=== PATIENT | male | born 1960 | race Caucasian/White ===

== ENCOUNTER 2019-08-02 10:16 | Outpatient (CLI) | payer BC ==
--- NOTE | 2019-08-02 15:33 | CONSULTATION NOTE ---
Palliative Care Consultation - Referral Referring Provider: Dr. Zoltan Mariscal Time of Visit: 01-26 Referral setting: [facility] [place] Referral Reason: Rectal cancer with liver mets/Goals of Care - Information Sources Records reviewed: Previous records reviewed History/Review of Systems obtained from: Patient Exam limitations: No limitations - History of Present Illness Brief History of Present Illness: This is a 58-year-old gentleman with stage IV rectal adenocarcinoma, with mets to the liver and pending biopsy to the lung. Patient is to initiate FOLFIRINOX, with adding Avastin after 2 cycles if appropriate. Patient has seen multiple specialists including surgeon, oncologist, radiation oncology and oncology PA for chemotherapy teaching. He is feeling somewhat overwhelmed. He originally thought he had 2 weeks, he has heard 2 years, and also possibly a longer extended period of life expectancy. He is not clear given what is going on, will he may have a follow-up surgery, and/or follow-up radiation. We did discuss at length just the complexity sometimes of layering the treatments, and as they are evaluating response to his chemotherapy, the timing and options of pending treatments as far as surgery and radiation look further come into focus. He does understand those treatment is not curative in nature, but not as dire as he originally thought. Patient only other symptom, has been the bleeding in his stool, sometimes mixed with fresh clots, and does report worsening or versus decreasing caliber in his stool. He does not present with any acute pain, tenderness, or symptoms of bowel obstruction. The hope at this point in time is to avoid a colostomy if possible. Palliative care meeting with patient to define goals of care, further explore advance care planning, and establish rapport for ongoing symptom management and support Medical/Surgical History - Past Medical History Cardiovascular: reports: Hypertension (new dx for patient) Respiratory: reports: Other (lung nodule with bx pending 07/21) HEENT: reports: Chronic vision loss MRSA Hx?: No - Past Surgical History General: reports: Colonoscopy - Substance History Use: Uses substance without health or social issues: NONE Social History - Living Situation Living arrangement: At home Living Situation: Alone Support System: Patient is single, 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 He has 2 little dogs, to provide him much support and na. His mother is 83, reports she is quite strong, and is his main support. She is in contact with him almost daily, he has a brother [place] He has a sister in [place] and his sister in [place], does not have much community. He prefers things fairly quiet. He lives on [place], he is getting ready to sell his house to downsize and make things more simple. Family History - Family History Family History: Mother: Alive and Well, Father: Alive and Well, Sister: Alive and Well, Brother: Alive and Well Family History Comment/Other: patient reports there is cancer in siblings of mother, would like genetic dena warren Encouraged to get more information as will need for PEDIGREE and appointment. Medications/Allergies - Medications Home Medications: Ambulatory Orders Medication Instructions Recorded Confirmed Ascorbic Acid [Vitamin C] 1,000 mg PO [id number] 07/19/19 07/19/19 Multivit-Min/FA/Lycopen/Lutein 1 tab PO DAILY 07/19/19 08/02/19 [Men 50 Plus Multivitamin Tab] Lidocaine/Prilocain 2.5% Cream 30 gm TOP DAILY PRN 07/26/19 08/02/19 [Emla 2.5% Cream] OLANZapine [Olanzapine] 5 mg PO QPM PRN 07/26/19 08/02/19 Prochlorperazine Maleate 10 mg PO Q6HR PRN 07/26/19 08/02/19 [Compazine] Cholecalciferol [Vitamin D3] 5,000 unit PO DAILY 08/02/19 08/02/19 amLODIPine [Norvasc] 5 mg PO DAILY 08/02/19 08/02/19 - Allergies Allergies/Adverse Reactions: Allergies Allergy/AdvReac Type Severity Reaction Status Date / Time No Known Drug Allergies Allergy Verified 07/19/19 16:08 Review of Systems - Constitutional Constitutional: reports: Fatigue, Weight loss (reports purposeful 231-to 215 with portion control over last few months). denies: Fever, Chills - Eyes Eyes: reports: Vision loss, Corrective lenses - Cardiovascular Cardiovascular: denies: Decr. exercise tolerance - Respiratory Respiratory: denies: Cough, SOB at rest - Gastrointestinal Gastrointestinal: reports: Change in bowel habits, Rectal bleeding, Good appetite. denies: Abdominal pain, Nausea - Musculoskeletal Musculoskeletal: denies: Muscle weakness - Integumentary Integumentary: reports: Dryness - Neurological Neurological: denies: General weakness - Psychiatric Psychiatric: denies: Depression, Anxiety - Endocrine Endocrine: denies: Diabetes type 2, Hypothyroidism - Hematologic/Lymphatic Hematologic/Lymphatic: denies: Anemia, Recurrent infections - All Other Systems All Other Systems: reports: Reviewed and negative Physical Exam - Physical Exam General Appearance: positive: No acute distress, Anxious Eyes Bilateral: positive: Normal inspection ENT: positive: No signs of dehydration Neck: positive: Trachea midline Respiratory: positive: No respiratory distress Abdomen: positive: Soft Skin: positive: Dryness Extremities: positive: No pedal edema Neurologic/Psychiatric: positive: Oriented x3, Mood/affect nml Palliative Care - POLST Patient has POLST: No POLST Status: Full Code Pain: No pain Drowsiness/Sedation: None Nausea: None Anorexia: None Dyspnea: None Depression: None Anxiety: None Feelings of wellbeing/Perceived Quality of Life: Good, Acceptable Sleep: Sleeps well Constipation: No - Palliative Care Discussion: Discussion regarding patient's journey so far, does understand the seriousness of his illness, is hoping for the best. He does have a packet of advanced care planning documents, seems overwhelmed with it all. We did discuss in the context of priorities, most important to pick a D POA, he would pick his mother, given form to fill out for first picked mother, second pick father, and then brother. Reviewed needed to just have 2 witnesses or the notary does not need both. Did discuss advance care planning, this is more in alignment to goals, and if he were to have serious decline or D POA needed to make decisions. Given this is early in his nature, he would of course want to be as independent for as long as possible, and is just now exploring all the implications regarding his treatments. We agreed we would revisit this as things settle down, to define more what is most important. His long-term goal is of course of hope for the best, wanting both quantity and quality, patient is in fairly good shape and the goal is to do maximum treatment. We did discuss in the context of this he always has the decision- making capacity to be able to weigh benefits and burdens of treatment decisions as they come along. Did encourage to identify a person who will be checking on him regularly particularly as he lives alone and will be getting fairly toxic treatment. Results - Lab Results Lab results reviewed: Yes Impression and Recommendations - Palliative Care Impression: This is a 58-year-old gentleman who presents with stage IV rectal cancer, with treatment for palliative intent. Patient does not have any significant underlying history other than hypertension, is hoping for the best, and long- term quantity as well as quality. Palliative care to provide support for pain and symptom management and anticipatory guidance as treatment plan develops, and in the setting of developing report today. Recommendations/Counseling Done: 1. Metastatic stage IV rectal cancer. Patient receiving first treatment today, brought antiemetics and questions, written out instructions today. Reviewed both treatment of side effects, as well as concern about continue to keep stools soft and regularly moving. Counseling provided regarding signs and symptoms of bowel obstruction, use of MiraLAX for daily soft BM when not having diarrhea from treatment. Patient with questions regarding diet, counseling provided regarding healthy diet options, as well as improving intake of fresh fruits and vegetables. Patient currently would most likely benefit from dietary consult, but would wait for a couple of visits given his current state of mind. Patient requesting if radiation to be part of plan, would prefer to have [place] [facility] [place] secondary to support/driving. 2. Hypertension. Patient was started on low-dose amlodipine 5 mg, encouraged to take blood pressure intermittently. Reviewed signs and symptoms of dizziness, check blood pressure and hold BP med if less than 100/50. 3. Advanced care planning. Counseling provided regarding completion of D POA, will be identifying his mother as his primary, also discussed setting up plan for check-in during time after chemo for any complications. Patient is planning to downsize, and create more simplified life given his current understanding regarding his disease process. Palliative care will continue to work with advanced care planning at subsequent visits, goals of care at this point in time are to focus on quality but also quantity of life and moving forward. Time Spent: 60 minutes with greater than 50% of this done in counseling regarding new diagnosis, goals of care, clarifying symptom management for side effects as well is managing bowels, and anticipatory guidance.
== END 2019-08-02 10:17 | disposition home or self-care (01) ==
LOC: PC 10:16
PROVIDERS: ATTEND Nurse Practitioner Adult Health
DX: Z51.5 Encounter for palliative care (principal); C20 Malignant neoplasm of rectum; C78.7 Secondary malignant neoplasm of liver and intrahepatic bile duct; R91.1 Solitary pulmonary nodule; I10 Essential (primary) hypertension; Z80.9 Family history of malignant neoplasm, unspecified; Z79.899 Other long term (current) drug therapy
CPT/HCPCS: 99205

== ENCOUNTER 2019-09-13 08:16 | Outpatient (CLI) | payer BC ==
--- NOTE | 2019-09-13 14:01 | CONSULTATION NOTE ---
Palliative Care Follow Up - Referral Referring Provider: Dr. Zoltan Mariscal Time of Visit: [id number] Referral setting: [facility] – [place] Referral Reason: Anxiety/Met Colon CA/Goals of care - Information Sources Records reviewed: Previous records reviewed History/Review of Systems obtained from: Patient Exam limitations: No limitations - History of Present Illness Update Brief HPI Update: This is a sabas 59-year-old gentleman who has clinical stage IV rectal cancer with liver and lung mets. He is currently receiving FOLFIRINOX, every two weeks. He is here to receive treatment for of his neoadjuvant regimen. He has been tolerating very well, with some side effects from the oxaliplatin with numbness tingling and cold sensitivities. He reports this usually resolves within a week. He has had some mild nausea, and fatigue but otherwise has felt pretty well. He is feeling quite hopeful, as he is to be meeting with the col orectal surgeon, follow-up on his lung nodule, as well as the radiation oncologist. He was feeling things are quite dire, but is feeling more positive and hopeful given his meeting just recently with oncologist. Patient presents with low symptom burden, he is managing his constipation alternating with diarrhea with MiraLAX and Imodium appropriately. He is continue to be active as far as walking daily, focusing on diet, and hydration. He is somewhat perplexed as he does not "feel I have cancer", but is somewhat anxious about planning for the future and making decisions in the context of his prognosis. He reports he is getting adequate support from his mother, he does see her daily, as well as he likes his quiet and spending time with his 2 little dogs. He has been able to remain weight neutral, has had no further rectal bleeding, or obstructive symptoms. Social History - Living Situation Living arrangement: At home Living Situation: Alone Support System: Patient feels well supported by his mother, who is in good health. He has his sister visiting from [place] and they have enjoyed going on hikes, as well as time together. He is currently retired from the [employer], have encouraged him to contact Social Security, for Social Security disability as he did not know this was available. Medications/Allergies - Medications Home Medications: Ambulatory Orders Medication Instructions Recorded Confirmed Ascorbic Acid [Vitamin C] 1,000 mg PO DAILY 07/19/19 09/14/19 Multivit-Min/FA/Lycopen/Lutein 1 tab PO DAILY 07/19/19 09/14/19 [Men 50 Plus Multivitamin Tab] Lidocaine/Prilocain 2.5% Cream 30 gm TOP DAILY PRN 07/26/19 09/14/19 [Emla 2.5% Cream] OLANZapine [Olanzapine] 5 mg PO QPM PRN 07/26/19 09/14/19 Prochlorperazine Maleate 10 mg PO Q6HR PRN 07/26/19 09/14/19 [Compazine] Cholecalciferol [Vitamin D3] 5,000 unit PO DAILY 08/02/19 09/14/19 amLODIPine [Norvasc] 5 mg PO DAILY 08/02/19 09/14/19 Iron Supplement 65 mg PO .QOD 09/14/19 Loperamide [Imodium] 2 mg PO Q4HR PRN MDD 8 tabs 09/14/19 09/14/19 polyethylene glycoL 3350 [Miralax] 17 mg PO DAILY PRN 09/14/19 09/14/19 - Allergies Allergies/Adverse Reactions: Allergies Allergy/AdvReac Type Severity Reaction Status Date / Time No Known Drug Allergies Allergy Verified 08/30/19 08:43 Review of Systems - Constitutional Constitutional: reports: Fatigue, Weight stable (201). denies: Fever, Chills - Eyes Eyes: reports: Vision loss, Corrective lenses - Ears, Nose & Throat Ears, Nose & Throat: denies: Mouth lesions - Cardiovascular Cardiovascular: reports: Decr. exercise tolerance. denies: Chest pain, Edema, Lightheadedness - Respiratory Respiratory: denies: SOB at rest - Gastrointestinal Gastrointestinal: reports: Constipation, Diarrhea (alternating; uses immodium/miralaz) - Musculoskeletal Musculoskeletal: denies: Muscle weakness - Integumentary Integumentary: denies: Pruritis, Dryness - Neurological Neurological: denies: General weakness - Psychiatric Psychiatric: reports: Anxiety. denies: Depression - Endocrine Endocrine: reports: Intolerance to cold (for week with chemo) - Hematologic/Lymphatic Hematologic/Lymphatic: reports: Anemia. denies: Recurrent infections - All Other Systems All Other Systems: reports: Reviewed and negative Physical Exam - Vital Signs Temperature: 36.6 C Pulse Rate: 81 Respiratory Rate: 16 Blood Pressure: 145/87 - Physical Exam General Appearance: positive: No acute distress, Alert Eyes Bilateral: positive: Normal inspection ENT: negative: Mouth lesions Neck: positive: Trachea midline Cardiovascular: positive: Regular rate & rhythm Respiratory: positive: No respiratory distress, Breath sounds nml Abdomen: positive: Non-tender, Soft. negative: Guarding, Distended Skin: positive: Pallor, Dryness Extremities: positive: No pedal edema Neurologic/Psychiatric: positive: Oriented x3, Mood/affect nml Palliative Care - POLST Patient has POLST: No Pain: No pain Tiredness/Fatigue: None Drowsiness/Sedation: None Nausea: None Anorexia: Mild (1-3) Dyspnea: None Depression: None Anxiety: None, Comment (some anxiety noted in conversation) Feelings of wellbeing/Perceived Quality of Life: Excellent, Acceptable, No change Sleep: Sleeps well Constipation: Yes, Managed, Intermittent constipation Performance Status: Patient only noting the small impact on activity, with some residual fatigue first week. Otherwise walking on a regular basis, managing his ADLs, though he does have large property to manage, discussion regarding planning for the future, with more intensive therapies. - Palliative Care Discussion: Session regarding patient's journey with this, with original diagnosis feeling overwhelmed and things were dire, feeling somewhat more hopeful. No recognizes the seriousness of his illness, but coming to terms may have more quantity of life and originally had discussed. Counseling provided regarding the multiple treatments and journey ahead, that care for metastatic rectal cancer has improved both for quality and quantity of life. Patient did complete his D POA for his mother as primary Carol Peace as primary [phone]. Counseling provided though regarding in the context of talking about what is most important to him, if he were unable to speak for himself. We are hoping for the best in a good outcome, but if he were to have an unexpected hospitalization, or complication from his cancer it is important that she understand what his choices might be. He values his independence, would not want to be dependent on anyone, or receive care that would extend suffering. We discussed having this conversation, and also documenting for the future. Patient is currently retired, is toying with and weighing benefits and burdens of moving. We did discuss in the context of course this is still a serious illness, looking at ways that with decrease his stress as well as his financial distress. He has not applied for Social Security disability, encouraged him to contact and get an appointment as soon as possible. Given his "terminal" diagnosis would qualify. Results - Lab Results Lab results reviewed: Yes Impression and Recommendations - Palliative Care Impression: This is a 59-year-old gentleman with clinical stage IV rectal cancer with liver and lung mets, receiving neoadjuvant treatment. He does present with low symptom burden, and is tolerating his treatment well. He is moving forward with consults for next steps, is hopeful. Palliative care to continue provide sup port regarding symptom management, psychosocial support and anticipatory guidance. Recommendations/Counseling Done: 1.Constipation. Patient managing to keep his bowels soft, as well as manage diarrhea a side effect of chemo. He is appropriately using MiraLAX and Imodium with good response. No further changes needed. 2. Anxiety. Patient identifies coping mechanisms, with small support [place], does not feel any kind of support group or out which would be helpful, has had negative experiences in the past. Did offer a medical palliative care psychologist social at any point would be helpful, counseling provided regarding normal feelings in response to roller coaster ride of treatment and diagnosis. Explored current concerns and planning for the future. 3. Rectal cancer, stage IV with liver and lung mets. Patient is to receive consults and moving forward, he is feeling quite positive regarding this. Patient is tolerating treatment well, counseling provided to encourage focus on good nutrition, and maintaining functional status with ongoing walks and exercise. 4. Advanced care planning. Patient does have D POA document completed, counseling provided regarding next step of conversation regarding goals if unable to speak for self, what is acceptable and what is not in moving forward. Provided counseling regarding the role of a D POA, only comes in a place and patient is not able to make decisions for himself. Patient is trying to make long-term plans regarding managing in the context of unknown prognosis, encouraged to contact Social Security, may also be a candidate for Medicare in future. Time Spent: 35 minutes with greater than 50% of this done on counseling regarding symptom management, advanced care planning, anticipatory guidance, and psychosocial support.
== END 2019-09-13 08:17 | disposition home or self-care (01) ==
LOC: PC 08:16
PROVIDERS: ATTEND Nurse Practitioner Adult Health
DX: Z51.5 Encounter for palliative care (principal); K59.00 Constipation, unspecified; F41.9 Anxiety disorder, unspecified; R19.7 Diarrhea, unspecified; C20 Malignant neoplasm of rectum; C78.7 Secondary malignant neoplasm of liver and intrahepatic bile duct; C78.00 Secondary malignant neoplasm of unspecified lung; Z79.899 Other long term (current) drug therapy
CPT/HCPCS: 99214

== ENCOUNTER 2020-02-14 14:00 | Outpatient (CLI) | payer BC ==
--- NOTE | 2020-02-14 16:40 | CONSULTATION NOTE ---
Palliative Care Follow Up - Referral Referring Provider: Dr. 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 He has completed his FOLFIRINOX for 7 cycles, and did have liver mets resection 12/2019. He is currently about correction through his concurrent Xeloda/radiation which he started on 01/25/2024 6 weeks. The plan at this point time is to follow-up with the surgeon on 03/15, to see if patient candidate for further debulking and/or possible resection. He reports currently he was to receive radiation for lung mets, but on scan, does not show any cur rent nodules to target. Patient with low symptom burden presenting with currently is mostly fatigue, he does nap in the afternoon. He is having to travel daily for radiation. He reports his appetite is good, his weight is remained stable, his hemoglobin is 10.9. He does describe though some bowel urgency and rectal irritation, with some feelings of pressure. He reports he often is only passing gas, but finds this very inconvenient. He denies any bleeding, he has been keeping his stools soft with the use of MiraLAX. He has not had any liquid/watery stool. He denies any mucositis, nor any hand/foot syndrome symptoms. Past Medical History: Hypertension Social History - Living Situation Living arrangement: Other (parents home) Support System: Patient had originally sold his house, he is getting ready to move into a smaller rental space. He has been staying with his parents, and is ready to be independent again, he does have 2 sabas dogs, that keep him company. His sister from [place], has returned, will come back if patient has further surgery, he does feel like he has enough support particularly with his mother. She has been accompanying him, to radiation. 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 Medications/Allergies - Medications Home Medications: Ambulatory Orders Medication Instructions Recorded Confirmed Multivit-Min/FA/Lycopen/Lutein 1 tab PO DAILY 07/19/19 01/24/20 [Men 50 Plus Multivitamin Tab] Lidocaine/Prilocain 2.5% Cream 30 gm TOP DAILY PRN 07/26/19 01/24/20 [Emla 2.5% Cream] OLANZapine [Olanzapine] 5 mg PO QPM PRN 07/26/19 01/24/20 Prochlorperazine Maleate 10 mg PO Q6HR PRN 07/26/19 01/24/20 [Compazine] Cholecalciferol [Vitamin D3] 5,000 unit PO DAILY 08/02/19 01/24/20 amLODIPine [Norvasc] 5 mg PO DAILY 08/02/19 01/24/20 Iron Supplement 65 mg PO .QOD 09/14/19 01/24/20 Loperamide [Imodium] 2 mg PO Q4HR PRN MDD 8 tabs 09/14/19 01/24/20 polyethylene glycoL 3350 [Miralax] 17 mg PO DAILY PRN 09/14/19 01/24/20 Potassium Chloride 10 meq PO DAILY 09/27/19 01/24/20 Capecitabine [Xeloda] 500 mg PO BID 01/10/20 01/24/20 - Allergies Allergies/Adverse Reactions: Allergies Allergy/AdvReac Type Severity Reaction Status Date / Time No Known Drug Allergies Allergy Verified 02/14/20 14:59 Review of Systems - Constitutional Constitutional: reports: Fatigue, Weight stable. denies: Fever, Chills - Eyes Eyes: reports: Vision loss, Corrective lenses - Ears, Nose & Throat Ears, Nose & Throat: denies: Mouth lesions - Cardiovascular Cardiovascular: reports: Decr. exercise tolerance. denies: Edema - Respiratory Respiratory: denies: Cough, SOB at rest - Gastrointestinal Gastrointestinal: reports: Good appetite. denies: Abdominal pain, Constipation, Diarrhea (soft stools but using Miralax), Nausea, Reflux/heartburn - Integumentary Integumentary: reports: Dryness - Psychiatric Psychiatric: reports: Anxiety - Hematologic/Lymphatic Hematologic/Lymph: Anemia - All Other Systems All Other Systems: reports: Reviewed and negative Physical Exam - Vital Signs Temperature: 36.4 C Pulse Rate: 92 Respiratory Rate: 17 O2 Saturation: 99 (ra @ rest) Blood Pressure: 133/81 - Physical Exam General Appearance: positive: No acute distress, Alert Eyes Bilateral: positive: Normal inspection ENT: positive: No signs of dehydration Neck: positive: Trachea midline Respiratory: positive: No respiratory distress Abdomen: positive: Non-tender, Soft. negative: Distended Skin: positive: Other (surgical incision well healed) Extremities: positive: No pedal edema Neurologic/Psychiatric: positive: Oriented x3 Palliative Care - POLST Patient has POLST: No POLST Status: Full Code Pain: No pain Tiredness/Fatigue: Mild (1-3) Drowsiness/Sedation: None Nausea: None Anorexia: None Dyspnea: None Depression: None Anxiety: Mild (1-3) Feelings of wellbeing/Perceived Quality of Life: Good, No change Sleep: Sleeps well Constipation: No Performance Status: Patient is experiencing some fatigue, still walking his dogs regularly, can walk up to half mile a day. He does feel like his activity tolerance is less but is still managing his ADLs. - Palliative Care Discussion: Patient continues moving forward with his treatment plan, is hoping for quantity of time, as well as quality. He feels like currently his quality of life is tolerable, has been able to manage side effects from treatments, as well has recovered well from surgery. He is anxious to see what next steps are, regarding surgery. Have been brought up about possible colostomy, patient with very little understanding regarding this, I did review and encouraged him to learn a little bit more as he would want to weigh benefits and burdens in the context of this decision to understand what that might look like.Did provide information, but very simple and concrete. Reminded patient that he does have DPOA, was unable to locate paperwork, printed out again for him, his DPOA is his mother, Carol Young [phone]. We did discuss CODE STATUS in the context of entering the system again for surgery, patient currently would be a full code. He has had discussions with his mother though, what would be quality of life as far as would not want to lose independent, be in a alf, or dependent on others. He does still need to follow-up on a well, he does have some complicated estate planning questions, recommended that he go to an director of corporate real estate, verbalized understanding.Patient has had conversations with radiation oncologist, and surgeon regarding prognosis, recommended also following up with oncology in his appointment today, to get further information from their perspective as well Results - Lab Results Lab results reviewed: Yes Lab and Imaging Results: CEA 50.6, this is in comparison to December is 29.2, has increased. Hemoglobin 10.9 Impression and Recommendations - Palliative Care Impression: This is a 59-year-old gentleman with stage IV rectal cancer with liver and lung mets. He is currently receiving concurrent chemo/radiation with Xeloda. He is about correction through his course, with some urgency/rectal irritation. He has been tolerating it fairly well overall. Palliative care continue provide support regarding symptom management, psychosocial support and anticipatory guidance. Recommendations/Counseling Done: 1. Fatigue. This is multifactorial, is still doing daily walking, hemoglobin 10.9, is doing well with food and fluids. Instructed continue with his activity up to tolerance, as well as focus on nutrition and hydration status. Patient verbalized understanding. 2. Diarrhea. Patient is having soft loose stools, he is still using MiraLAX, he is afraid of obstruction and constipation which causes more pain and discomfort. Counseling provided regarding radiation and side effects, instructed to titrate accordingly, and if loose watery stool needs to use Imodium in the context of keeping it under control. 3. Anxiety. Patient continues to be somewhat of an introvert, does have family support, is not interested in looking outside of his family [email or web address] for support. Patient is using distraction, enjoys his dogs for support, and continues to hope for the best. He does have a few things yet he wants to make sure he is taking care of, these were reviewed and advanced care planning. 4. Metastatic rectal cancer with liver and lung mets. Patient has completed his initial chemotherapy, has had his liver resection, per patient's report no evidence of lung mets currently, and is currently about correction through his louie moradiation. He does have pending surgery appointment, had multiple questions regarding possible colostomy. Counseling provided regarding initial simple information provided, recommended given the threshold for decision making weighing benefits and burdens, recommended he explore YouTube videos, as he had many questions regarding care and the workings of a colostomy. Patient does not present with any further weight loss, though his CEA is elevated. 5. Advanced care planning. Patient does have DPOA document completed was unable to locate, made him copy, recommended he takes it to his surg [place] with surgery. He remains hopeful for the future, we did discuss in the context of palliative versus hospice care, will continue to provide support, patient continues on an aggressive treatment plan. Initiated conversation regarding CODE STATUS, patient currently would like to be still a full code, though has had conversations with his mother regarding what would be acceptable/not acceptable quality of life issues. Time Spent: 45 minutes with greater than 50% of this done in counseling regarding symptom management, goals of care, anticipatory guidance.
== END 2020-02-14 14:01 | disposition home or self-care (01) ==
LOC: PC 14:00
PROVIDERS: ATTEND Nurse Practitioner Adult Health
DX: Z51.5 Encounter for palliative care (principal); R53.83 Other fatigue; R19.7 Diarrhea, unspecified; F41.9 Anxiety disorder, unspecified; C20 Malignant neoplasm of rectum; C78.7 Secondary malignant neoplasm of liver and intrahepatic bile duct; C78.00 Secondary malignant neoplasm of unspecified lung; I10 Essential (primary) hypertension; Z79.899 Other long term (current) drug therapy
CPT/HCPCS: 99215

== ENCOUNTER 2020-03-06 | Outpatient (CLI) | payer BC ==
--- NOTE | 2020-03-06 12:03 | CONSULTATION NOTE ---
Palliative Care Follow Up - Referral Referring Provider: Dr. Zoltan Mariscal Time of Visit: [id number] Referral setting: [facility] [place] Referral Reason: Dehydration/diarrhea/Met Colon CA - Information Sources Records reviewed: Previous records reviewed History/Review of Systems obtained from: Patient Exam limitations: No limitations - History of Present Illness Update Brief HPI Update: This is a 59-year-old gentleman who has stage IV rectal cancer liver and lung since 06/2019. He has completed his FOLFIRINOX for 7 cycles, had liver resection 12/2019. He just completed concurrent Xeloda and radiation, which he started 01/24, and now presents with toxicity. Patient was seen sitting with head and hands, looking quite pale and dehydrated. Patient reports he had increasing diarrhea and severe diarrhea with incontinence and frequent stooling at least every hour over the weekend. He is only taken a few Imodium, as he was reading the tablets/instructions. Patient is unable to take anything orally, has dumped it through with more diarrhea, was drinking large amounts of juices well. Patient does appear quite uncomfortable. Had them check his orthostatic blood pressures, with hypotension with standing. 119/75 sitting p91; 93/52 standing p. 99. Patient was awaiting meeting with oncology, went ahead and have them start 1 L normal saline, suspecting will need to add potassium given the amount of diarrhea patient describing. Patient was feeling quite poorly, was trying to "tough it out". Social History - Living Situation Living arrangement: At home Living Situation: Alone Support System: Patient had been living with parents, recently moved into his own apartment. He has 2 dogs he is quite fond of, can get his mother to do some shopping for him, has been providing transportation to radiation. 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, but little other community Medications/Allergies - Medications Home Medications: Ambulatory Orders Medication Instructions Recorded Confirmed Multivit-Min/FA/Lycopen/Lutein 1 tab PO DAILY 07/19/19 01/24/20 [Men 50 Plus Multivitamin Tab] Lidocaine/Prilocain 2.5% Cream 30 gm TOP DAILY PRN 07/26/19 01/24/20 [Emla 2.5% Cream] OLANZapine [Olanzapine] 5 mg PO QPM PRN 07/26/19 01/24/20 Prochlorperazine Maleate 10 mg PO Q6HR PRN 07/26/19 01/24/20 [Compazine] Cholecalciferol [Vitamin D3] 5,000 unit PO DAILY 08/02/19 01/24/20 amLODIPine [Norvasc] 5 mg PO DAILY 08/02/19 01/24/20 Iron Supplement 65 mg PO .QOD 09/14/19 01/24/20 Loperamide [Imodium] 2 mg PO Q4HR PRN MDD 8 tabs 09/14/19 01/24/20 polyethylene glycoL 3350 [Miralax] 17 mg PO DAILY PRN 09/14/19 01/24/20 Potassium Chloride 10 meq PO DAILY 09/27/19 01/24/20 Capecitabine [Xeloda] 3 cap PO BID 01/10/20 02/29/20 - Allergies Allergies/Adverse Reactions: Allergies Allergy/AdvReac Type Severity Reaction Status Date / Time No Known Drug Allergies Allergy Verified 02/14/20 14:59 Review of Systems - Constitutional Constitutional: reports: Fatigue, Poor appetite, Weight stable. denies: Fever, Chills - Eyes Eyes: reports: Vision loss, Corrective lenses - Ears, Nose & Throat Ears, Nose & Throat: reports: Dry mouth. denies: Mouth lesions - Cardiovascular Cardiovascular: reports: Lightheadedness, Decr. exercise tolerance - Respiratory Respiratory: denies: SOB at rest - Gastrointestinal Gastrointestinal: reports: Abdominal pain, Diarrhea (soft stools but using Miralax), Bloating, Poor appetite. denies: Nausea, Reflux/heartburn - Genitourinary Genitourinary: reports: Other (reports concentrated urine) - Musculoskeletal Musculoskeletal: reports: Stiffness, Muscle weakness - Integumentary Integumentary: reports: Dryness, Other (cracking on fingers; dryness) - Neurological Neurological: reports: General weakness, Dizziness - Psychiatric Psychiatric: reports: Anxiety - Hematologic/Lymphatic Hematologic/Lymph: Anemia - All Other Systems All Other Systems: reports: Reviewed and negative Physical Exam - Physical Exam General Appearance: positive: No acute distress, Alert Eyes Bilateral: positive: Normal inspection ENT: positive: Dry mucous membranes Neck: positive: Trachea midline Cardiovascular: positive: Regular rate & rhythm Respiratory: positive: No respiratory distress, Breath sounds nml Abdomen: positive: Non-tender, Soft. negative: Distended Skin: positive: Dryness (hands with cracking finger tips) Extremities: positive: No pedal edema Neurologic/Psychiatric: positive: Oriented x3, Weakness, Flat affect Palliative Care - POLST Patient has POLST: No Performance Status: Patient feeling quite weak and dizzy when up and moving around. Less energy to do things, had progressed over the last couple weeks, with the finishing of his radiation/Xeloda. - Palliative Care Discussion: Patient is somewhat introverted, tends not to ask a lot of questions. He does perceive he is done fairly well through all his treatment cycles, which is correct, but this has been a pretty tough combination to tolerate. He had been following just the instructions on the medication box. He did not understand the severity of his symptoms, nor the underlying etiology. We did discuss concern regarding need to identify these toxicities/symptoms early, patient often just "guts things out". 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 He is receiving therapy with the hope of possible clinical remission. He is getting evaluation on 03/15 for possible surgical resection of his disease. He does understand the seriousness of his illness, originally was told he would have a very short life expectancy. He is grateful for the time he has had and has tolerated treatment fairly well up to this point. Palliative care providing support, coordination of care with oncology relating to increased toxicity today. Recommendations/Counseling Done: 1. Chemotherapy-induced diarrhea. Patient has only been using may be 3-4 Imodium a day, without good control. Instructed to take 2 after each loose stool, up to 8 tabs. Because having nighttime stooling, instructed to take 2 at bedtime until the slows down. Patient having a large volume of diarrhea, will be receiving fluids today and arrangements made for daily except Friday. Patient does have low potassium, oncology following up on magnesium. He will receive a mortgage or loan underwriter in addition to the liter currently infusing. Counseled also regarding diet, low fiber, instructed on easy digestible foods, as well as pushing fluids. Patient instructions written, instructed to call if this does not improve, can order Lomotil. Concern is patient has had obstructive symptoms in the past, and has been actually on maintenance MiraLAX to try and keep from further rectal bleeding. 2. Anxiety. Patient does tend to be a bit of an introvert, does have support from his sister and mother. Patient often uses distraction, enjoys his dog for support, he is recently moved to his own apartment. Counseling provided for anticipatory guidance. 3. Fatigue. This is multifactorial, dehydration, anemia, and hypokalemia. Will replace fluids, counseling provided for food and fluid support, as well as tailoring current activity to his current energy level. 4. Advanced care planning. Patient does have DPOA, his mother Carol xiong, his mother [phone]. He does have pending appointment with surgeon, will follow up afterwards for further anticipatory support Time Spent: 20 minutes with greater than 50% of this done in counseling regarding symptom management, coordination of care with oncology, and anticipatory guidance
== END 2020-03-06 11:56 | disposition home or self-care (01) ==
CPT/HCPCS: 99213

== ENCOUNTER 2020-03-09 | Outpatient (CLI) | payer BC ==
--- NOTE | 2020-03-09 14:02 | CONSULTATION NOTE ---
Palliative Care Follow Up - Referral Referring Provider: Dr. Mariscal Time of Visit: 929-12 [place] [facility] [facility] [place] Reason: Dehydration/Diarrhea/met Colon CA - Information Sources Records reviewed: RN notes reviewed, Previous records reviewed History/Review of Systems obtained from: Patient Exam limitations: No limitations - History of Present Illness Update Brief HPI Update: This is a 59-year-old gentleman who has stage IV rectal cancer, with mets to the liver and lung since 06/2019. He is currently completed his FOLFIRINOX for 7 cycles, and had a liver resection 12/2019. He completed concurrent Xeloda and radiation, presents with grade 3 toxicity, is getting daily hydration but continues with persistent diarrhea. He does feel like it is getting somewhat better, but has not resolved. He denies any rectal bleeding, but is having some increased discomfort and excoriation as a result of the diarrhea. He still remains with lower blood pressure 101/66 and a pulse of 95. He reports he still have some significant diarrhea last night, watery in nature, but is slowing down. He has not been eating very much, and is somewhat weak. Social History - Living Situation Living arrangement: At home Living Situation: Alone Support System: Patient is well supported by his 84-year-old mother, he also has a sister from [place] his been out as well. Otherwise he lives alone, has 2 dogs. 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 He describes himself as an introvert Medications/Allergies - Medications Home Medications: Ambulatory Orders Medication Instructions Recorded Confirmed Multivit-Min/FA/Lycopen/Lutein 1 tab PO DAILY 07/19/19 03/09/20 [Men 50 Plus Multivitamin Tab] Lidocaine/Prilocain 2.5% Cream 30 gm TOP DAILY PRN 07/26/19 03/09/20 [Emla 2.5% Cream] Prochlorperazine Maleate 10 mg PO Q6HR PRN 07/26/19 03/09/20 [Compazine] Cholecalciferol [Vitamin D3] 5,000 unit PO DAILY 08/02/19 03/09/20 amLODIPine [Norvasc] 5 mg PO DAILY 08/02/19 03/09/20 Iron Supplement 65 mg PO .QOD 09/14/19 03/09/20 Loperamide [Imodium] 2 mg PO Q4HR PRN MDD 8 tabs 09/14/19 03/09/20 polyethylene glycoL 3350 [Miralax] 17 mg PO DAILY PRN 09/14/19 03/09/20 Potassium Chloride 10 meq PO DAILY 09/27/19 03/09/20 Diphenoxylate/Atropine [Lomotil] 1 - 2 tab PO QID PRN #40 tablet 03/07/20 03/09/20 Ondansetron HCl 8 mg PO BID PRN #30 tablet 03/07/20 03/09/20 - Allergies Allergies/Adverse Reactions: Allergies Allergy/AdvReac Type Severity Reaction Status Date / Time No Known Drug Allergies Allergy Verified 02/14/20 14:59 Review of Systems - Constitutional Constitutional: reports: Fatigue, Poor appetite, Weight loss. denies: Fever, Chills - Eyes Eyes: reports: Vision loss, Corrective lenses - Ears, Nose & Throat Ears, Nose & Throat: reports: Dry mouth. denies: Mouth lesions - Cardiovascular Cardiovascular: reports: Lightheadedness, Decr. exercise tolerance. denies: E christen - Respiratory Respiratory: denies: SOB at rest - Gastrointestinal Gastrointestinal: reports: Diarrhea (Patient having diarrhea, still some dumping, did have some improvement yesterday but had watery diarrhea through the evening again with incontinence and urgency.Had to use about 6 tablets of Lomotil. He did take 2 this AM.), Bloating, Poor appetite, Early satiety. denies: Nausea, Reflux/heartburn - Genitourinary Genitourinary: reports: Other (reports concentrated urine) - Musculoskeletal Musculoskeletal: reports: Stiffness, Muscle weakness - Integumentary Integumentary: reports: Dryness, Other (cracking on fingers; dryness) - Neurological Neurological: reports: General weakness - Psychiatric Psychiatric: reports: Anxiety - Hematologic/Lymphatic Hematologic/Lymph: Anemia - All Other Systems All Other Systems: reports: Reviewed and negative Physical Exam - Vital Signs Temperature: 36.5 C Pulse Rate: 95 Respiratory Rate: 18 Blood Pressure: 101/66 - Physical Exam General Appearance: positive: Alert, Mild distress Eyes Bilateral: positive: Normal inspection ENT: negative: Pharyngeal erythema Neck: positive: Trachea midline Cardiovascular: positive: Regular rate & rhythm, Tachycardia Respiratory: positive: No respiratory distress, Breath sounds nml Abdomen: positive: Non-tender, Soft, Distended (mild) Skin: positive: Dryness (hands with cracking finger tips) Extremities: positive: No pedal edema Neurologic/Psychiatric: positive: Oriented x3, Weakness, Flat affect Palliative Care - POLST Patient has POLST: No Pain: Severity (2/10 rectal discomfort) Tiredness/Fatigue: Mild (1-3) Drowsiness/Sedation: None Nausea: None Anorexia: Moderate (4-6) Dyspnea: None Depression: None (though patient expresses some depressive feelings) Anxiety: None (worried about impending surgical consult) Feelings of wellbeing/Perceived Quality of Life: Fair, Acceptable, Improved Sleep: Sleeps well Performance Status: Patient is feeling somewhat weak, is not able to do his baseline walking. This is both attributed to activity intolerance as well as concern for urgency with his diarrhea. He is able to manage his own ADLs, and has been resting and quite sedentary. Plans to continue to recover through the weekend - Palliative Care Discussion: Patient cut somewhat unaware, of the severity of the side effects. He has done fairly well up to this point with all his treatments, he does have a pending visit with the surgeon regarding if surgical resection is going to be possible. Discussion regarding current concerns, psychosocial support provided Impression and Recommendations - Palliative Care Impression: This is a 59-year-old gentleman who has stage IV rectal cancer, with mets to liver and lung since 06/2019. He is coming off of his last treatment of radiation/Xeloda, with grade 3 toxicities of diarrhea and dehydration. He is getting daily hydration, with incremental improvement, palliative care following up for toxicity check today. Recommendations/Counseling Done: 1. Dehydration. Patient continues with some hypotension as well his tachycardia. He does feel somewhat better, reports he is pushing fluids, but has early satiety. Is receiving daily hydration counseling provided regarding necessity to continue to be aggressive with continual sips, goal for urine to be light yellow. Patient counseled on signs or symptoms to access ED if worsens. 2. Anorexia. This is multifactorial, patient with very poor caloric intake, of less probably than 1000 a day. Counseling provided regarding bland, soft, low fiber diet for the next few days. Encouraged to eat every 2-3 hours, goal for no further weight loss. 3. Diarrhea. Patient still having some diarrhea which includes urgency and rectal irritation. Counseled providing recommendations for skin care, as well as scheduled Lomotil 2 tabs 3 times a day for the next few days until diarrhea improved, then transition to as needed basis. Patient is due for labs on Friday and follow-up on Friday. 4. Stage IV rectal cancer. Discussed need for patient to stabilize as far as weight and hydration status is scheduled to see the surgeon on 03/15. He is hopeful to be a surgical candidate which would include more focus on a curative intent. Time Spent: 30 minutes with greater than 50% of this done in counseling regarding management of symptoms, psychosocial support, and anticipatory guidance
== END 2020-03-09 09:34 | disposition home or self-care (01) ==
CPT/HCPCS: 99214

== ENCOUNTER 2020-04-24 15:03 | Outpatient (CLI) | payer BC ==
--- NOTE | 2020-04-24 17:58 | CONSULTATION NOTE ---
Palliative Care Follow Up - Referral Referring Provider: Dr. Zoltan Mariscal Time of Visit: [id number] Ref[place] [facility] [place] Reason: Anxiety/Met Rectal Cancer - Information Sources Records reviewed: Previous records reviewed History/Review of Systems obtained from: Patient Exam limitations: No limitations - History of Present Illness Update Brief HPI Update: This is a sabas 59-year-old gentleman with stage IV rectal cancer, with mets to liver and lung. He had completed his FOLFOXFIRI 7 cycles, received a liver resection 12/2019, and completed concurrent Xeloda and radiation though presented with grade 3 toxicity. He has been working on gaining weight, getting stronger with progressive ambulation, and was scheduled to have primary rectal cancer surgery, but unfortunately a restaging scan CT scan on 04/10/2019, unfortunately revealed reappearance of left lower lobe nodules, with new left adrenal gland nodule 27 mm in size. He also presented with new ascites, noted as moderate. Needless to say he is feeling somewhat overwhelmed, the surgeon had talked to him about "quality of life", he does not know what this means as far as his life expectancy or the what next. Dr. Mariscal joined us, to discuss unfortunately he will need to go back to chemotherapy. The goal at this point will be again to attempt to complete remission, with a plan to restage, to possibly consider surgery again. He does understand it is not curative intent, but is hoping for both quality of life and quantity of life. He currently has been feeling better. Is starting to have some recurrent constipation, will restart his MiraLAX. He has been trying to gain weight, had a couple vomiting episodes with this. He attributes these to "stuffing" himself and trying to gain weight prior to surgery. He is feeling somewhat depressed, though is quite pragmatic. Past Medical History: Hypertension, liver mets resection 12/2019, anemia of iron deficiency, chronic vision loss Social History - Living Situation Living arrangement: At home Living Situation: Alone Support System: Patient has an apartment, he lives alone, he is supported by his mother who lives nearby. His sister from [place], is currently here had been planning to support him through his surgery. He has his 2 dogs, he lives a very quiet life. 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 Medications/Allergies - Medications Home Medications: Ambulatory Orders Medication Instructions Recorded Confirmed Multivit-Min/FA/Lycopen/Lutein 1 tab PO DAILY 07/19/19 04/25/20 [Men 50 Plus Multivitamin Tab] Lidocaine/Prilocain 2.5% Cream 30 gm TOP DAILY PRN 07/26/19 04/25/20 [Emla 2.5% Cream] Prochlorperazine Maleate 10 mg PO Q6HR PRN 07/26/19 04/25/20 [Compazine] Cholecalciferol [Vitamin D3] 5,000 unit PO DAILY 08/02/19 04/25/20 amLODIPine [Norvasc] 5 mg PO DAILY 08/02/19 04/25/20 Iron Supplement 65 mg PO .QOD 09/14/19 04/25/20 Loperamide [Imodium] 2 mg PO Q4HR PRN MDD 8 tabs 09/14/19 04/25/20 polyethylene glycoL 3350 [Miralax] 17 mg PO DAILY PRN 09/14/19 04/25/20 Potassium Chloride 10 meq PO DAILY 09/27/19 04/25/20 Diphenoxylate/Atropine [Lomotil] 1 - 2 tab PO QID PRN #40 tablet 03/07/20 04/25/20 Ondansetron HCl 8 mg PO TID PRN 04/25/20 04/25/20 polyethylene glycoL 3350 [Miralax] 17 gm PO DAILY 04/25/20 04/25/20 - Allergies Allergies/Adverse Reactions: Allergies Allergy/AdvReac Type Severity Reaction Status Date / Time No Known Drug Allergies Allergy Verified 04/03/20 09:17 Review of Systems - Constitutional Constitutional: reports: Fatigue (improved), Weight stable. denies: Fever, Chills - Eyes Eyes: reports: Vision loss, Corrective lenses - Ears, Nose & Throat Ears, Nose & Throat: reports: Dry mouth. denies: Mouth lesions - Cardiovascular Cardiovascular: reports: Decr. exercise tolerance (working on progressive). denies: Edema - Respiratory Respiratory: denies: Cough, SOB at rest - Gastrointestinal Gastrointestinal: reports: Constipation (working on keeping soft and daily), Good appetite - Musculoskeletal Musculoskeletal: reports: Stiffness - Integumentary Integumentary: reports: Dryness - Neurological Neurological: reports: General weakness - Psychiatric Psychiatric: reports: Depression (with recent findings; cancelation of surgery), Anxiety - Hematologic/Lymphatic Hematologic/Lymph: reports: Anemia (11.3) - All Other Systems All Other Systems: reports: Reviewed and negative Physical Exam - Vital Signs Pulse Rate: 81 Respiratory Rate: 18 Blood Pressure: 139/90 - Physical Exam General Appearance: positive: Alert, Anxious Eyes Bilateral: positive: Normal inspection ENT: positive: No signs of dehydration Neck: positive: Trachea midline Cardiovascular: positive: Regular rate & rhythm Respiratory: positive: No respiratory distress, Breath sounds nml Abdomen: positive: Non-tender, Soft, Distended (mild) Skin: positive: Dryness (hands with cracking finger tips) Extremities: positive: No pedal edema Neurologic/Psychiatric: positive: Oriented x3, Flat affect Palliative Care - POLST Patient has POLST: No POLST Status: Full Code Pain: No pain Tiredness/Fatigue: None Drowsiness/Sedation: None Nausea: Mild (1-3) Anorexia: Mild (1-3) Dyspnea: None Depression: Mild (1-3) Anxiety: Mild (1-3) Feelings of wellbeing/Perceived Quality of Life: Good, Acceptable, No change Sleep: Sleeps well Constipation: Yes, Intermittent constipation Performance Status: Patient is back to his baseline functional status. Is walking the dogs daily, trying to get stronger. Is able to manage all his ADLs, and is driving again. - Palliative Care Discussion: Patient expressing disappointment, and somewhat confused regarding the change of plans. Does understand he has stage IV disease and noncurable, had been hoping for continuation of his treatment plan, but now will be receiving chemotherapy again. He is feeling somewhat overwhelmed by his limited life expectancy, continues to hope for the best, and is willing to do what is necessary to continue with his treatment. Counseling provided to normalize his response and disappointment. Results - Lab Results Lab results reviewed: Yes Impression and Recommendations - Palliative Care Impression: This is a 59-year-old gentleman who has stage IV rectal cancer, with mets to liver and lung since 06/2019. He was set up for surgery and his primary rectal cancer, unfortunately CT scan showed recurrence of lung nodules and new adrenal mets. He is understandably disappointed, will be restarting chemotherapy. Palliative care continue to provide support for symptom management and anticipatory guidance. Recommendations/Counseling Done: 1 Stage IV rectal cancer to liver and lung. Restart chemotherapy, processing new treatment plan, questions answered as best could with in the context of what is currently known. Seen with Dr. Mariscal for part of visit to review new plan and questions. 2. Weight loss. Patient has been working on gaining weight, in preparation for surgery. Counseling provided regarding pacing intake, not to the point of nausea and vomiting. Instructed to continue to focus on nutrition to support him with his new treatment plan. We will continue to monitor given patient's recent experience with grade 3 toxicity with Xeloda/radiation. 3. Constipation. Patient is having some intermittent constipation, discussed need to keep his bowels soft and regular. Will reinitiate MiraLAX and titrate accordingly. Patient verbalized understanding. 4. Advanced care planning. Patient understandably is disappointed with recurrence of disease, goals remain to treat for remission again. Patient is trying to "wrap his head around the new changes". Counseling provided regarding normalizing feelings of grief and loss, enlisting support and coping mechanisms. 45 minutes with greater than 50% of this done in counseling regarding changes in current treatment plan, support for depressive feelings, clarification of patient's questions and anticipatory guidance.
== END 2020-04-24 15:04 | disposition home or self-care (01) ==
LOC: PC 15:03
PROVIDERS: ATTEND Nurse Practitioner Adult Health
DX: Z51.5 Encounter for palliative care (principal); R63.4 Abnormal weight loss; K59.00 Constipation, unspecified; C20 Malignant neoplasm of rectum; C78.7 Secondary malignant neoplasm of liver and intrahepatic bile duct; C78.00 Secondary malignant neoplasm of unspecified lung
CPT/HCPCS: 99215

== ENCOUNTER 2020-05-29 10:45 | Outpatient (CLI) | payer BC ==
--- NOTE | 2020-05-29 11:52 | CONSULTATION NOTE ---
Palliative Care Follow Up - Referral Referring Provider: Dr. Zoltan Mariscal Time of Visit: 1045-11:20 Referral setting: [facility] [place] Reason: Anxiety/Met Rectal CA - Information Sources Records reviewed: RN notes reviewed History/Review of Systems obtained from: Patient Exam limitations: No limitations - History of Present Illness Update Brief HPI Update: This is a 59-year-old gentleman with stage IV rectal cancer, with mets to liver and lung. He had completed his FOLFOX Fery x6 cycles, received a liver resection 12/2019, and completed concurrent Xeloda and radiation though did present with grade 3 toxicities. Unfortunately a restaging scan on 04/10/2019 showed reappearance of left lower lobe pulmonary nodules, nd a new left adrenal gland nodule. He also presented with some new ascites, though noted is moderate. Patient has been quite disappointed, he had been doing well with the hope for surgery for more aggressive/curative intent. He is feeling somewhat skeptical and distress, trying to figure out his prognosis and puts forth a guess of "6-12 months" though does not really want to know either. He has developed some rectal bleeding noted on stool only, has had some persistent fatigue, but over well has felt pretty well. He also has developed a distal umbilical hernia, that easily reduces. Though it is causing him some distress in the context of hearing the bowels rumble through. Patient is somewhat of a introvert, he is well connected with his mother and his sister who just returned back to [place]. He takes care of "his boys", his 2 little dogs. This does get him out walking. He has been eating and drinking, and maintaining his weight. Past Medical History: , Liver mets resection 12/2019, anemia of iron deficiency, chronic vision loss Social History - Living Situation Living arrangement: At home Living Situation: Alone Support System: Patient lives by himself in an apartment, he does visit his mother daily, has daily interaction. He does take his dog some walks, had sold his house in preparation for his transition. 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 Lives a quiet life. Medications/Allergies - Medications Home Medications: Ambulatory Orders Medication Instructions Recorded Confirmed Multivit-Min/FA/Lycopen/Lutein 1 tab PO DAILY 07/19/19 05/29/20 [Men 50 Plus Multivitamin Tab] Lidocaine/Prilocain 2.5% Cream 30 gm TOP DAILY PRN 07/26/19 05/29/20 [Emla 2.5% Cream] Prochlorperazine Maleate 10 mg PO Q6HR PRN 07/26/19 05/29/20 [Compazine] Cholecalciferol [Vitamin D3] 5,000 unit PO DAILY 08/02/19 05/29/20 amLODIPine [Norvasc] 5 mg PO DAILY 08/02/19 05/29/20 Iron Supplement 65 mg PO .QOD 09/14/19 05/29/20 Loperamide [Imodium] 2 mg PO Q4HR PRN MDD 8 tabs 09/14/19 05/29/20 polyethylene glycoL 3350 [Miralax] 17 mg PO DAILY PRN 09/14/19 05/29/20 Potassium Chloride 10 meq PO DAILY 09/27/19 05/29/20 Diphenoxylate/Atropine [Lomotil] 1 - 2 tab PO QID PRN #40 tablet 03/07/20 05/29/20 Ondansetron HCl 8 mg PO TID PRN 04/25/20 05/29/20 Omeprazole Magnesium 20 mg PO DAILY 05/15/20 05/29/20 levOCARNitine tartrate 500 mg PO BID 05/29/20 05/29/20 [l-Carnitine] - Allergies Allergies/Adverse Reactions: Allergies Allergy/AdvReac Type Severity Reaction Status Date / Time No Known Drug Allergies Allergy Verified 05/29/20 09:49 Review of Systems - Constitutional Constitutional: reports: Fatigue, Weight stable. denies: Fever, Chills - Eyes Eyes: reports: Vision loss, Corrective lenses - Ears, Nose & Throat Ears, Nose & Throat: reports: Dry mouth. denies: Mouth lesions - Cardiovascular Cardiovascular: reports: Decr. exercise tolerance (working on progressive). denies: Edema - Respiratory Respiratory: denies: SOB at rest - Gastrointestinal Gastrointestinal: reports: Constipation (working on keeping soft and daily managed with miralax), Rectal bleeding (about 2 weeks of slightly bleeding with stooling), Good appetite, Other (taste changes; abdominal hernia distal end of incision). denies: Nausea - Musculoskeletal Musculoskeletal: reports: Stiffness, Other (walks frequently with dogs) - Integumentary Integumentary: reports: Dryness - Neurological Neurological: reports: General weakness - Psychiatric Psychiatric: reports: Anxiety - Hematologic/Lymphatic Hematologic/Lymph: reports: Anemia (11.2) - All Other Systems All Other Systems: reports: Reviewed and negative Physical Exam - Vital Signs Temperature: 36.5 C Pulse Rate: 80 Respiratory Rate: 16 O2 Saturation: 98 Blood Pressure: 107/67 - Physical Exam General Appearance: positive: Alert, Anxious Eyes Bilateral: positive: Normal inspection ENT: positive: No signs of dehydration Neck: positive: Trachea midline Cardiovascular: positive: Regular rate & rhythm Respiratory: positive: No respiratory distress, Breath sounds nml Abdomen: positive: Non-tender, Soft, Other (slight umbilical hernia swelling; easily reduced) Skin: positive: Dryness (hands with cracking finger tips) Extremities: positive: No pedal edema Neurologic/Psychiatric: positive: Oriented x3, Mood/affect nml, Flat affect Palliative Care - POLST Patient has POLST: No Pain: No pain Tiredness/Fatigue: None Drowsiness/Sedation: None Nausea: None Anorexia: None Dyspnea: None Depression: None Anxiety: None, Comment (does express some anxiety feelings) Feelings of wellbeing/Perceived Quality of Life: Good, Acceptable, No change Sleep: Sleeps well Constipation: No Performance Status: Patient is independent, gets regular exercise walking his dogs. - Palliative Care Discussion: Patient does understand the seriousness of his illness, he is wondering more about his prognosis. We did discuss in the context of what is most important, he reports he still needs to do well. Did encourage him at this point in time to move forward and do his estate planning, that is important to have this in place particularly as a single person. Acknowledges understanding. He does have a lot of ambiguity about how much information regarding his prognosis he wants to know, he is making a gas of 6 to 12 months, this most likely is probably appropriate as far as long-term planning. He does worry a lot about his mother, he is worried about the impact on her. Reports that she is always up, but may have concerns. Encouraged to get permission but I be happy to reach out and address any questions or concerns she might have as well as provide support. Impression and Recommendations - Palliative Care Impression: This is a 59-year-old gentleman with stage IV rectal cancer to the liver, lung, left adrenal, and abdominal node. He is currently receiving FOLFOX/Avastin since 04/2020. His latest CEA, has risen from 28.63/1-34.4 on 05/29. He is also having some recurrent rectal bleeding, and presents today with an umbilical hernia that easily reduces and has no pain. Palliative care providing support regarding patient's symptom management, anxiety, and support for anticipatory guidance. Recommendations/Counseling Done: 1. Rectal bleeding. Patient reports mostly blood in stool, has restarted his MiraLAX on a regular basis. Goal is for regular soft BM daily. He is eating. Has no rectal pain with this. Instructed if worsens to notify back clinic or myself, may need to scope for follow-up and concern for progressive disease. Reviewed if patient had acute bleeding, needs to report and or go to ED. 2.Anxiety. Patient is quite passive in his engagement regarding learning about his disease and his disease trajectory, is ambivalent how much information he wants about his prognosis. Initiating exploring patient's concerns and plans as things progress in the future. Certainly hoping for the best, but encouraged to continue with his advance care planning. 3. Advanced care planning. Patient is notably different disappointed in his recurrent disease, goals remain to continue treatment to manage disease. He is concerned about his mother, encouraged to have her reach out or attend one of our appointments for palliative care support. 35 minutes with greater than 50% of this done in counseling regarding anticipatory guidance, symptom management, and advance care planning.
== END 2020-05-29 10:46 | disposition home or self-care (01) ==
LOC: PC 10:45
PROVIDERS: ATTEND Nurse Practitioner Adult Health
DX: Z51.5 Encounter for palliative care (principal); K92.1 Melena; F41.9 Anxiety disorder, unspecified; C20 Malignant neoplasm of rectum; C78.7 Secondary malignant neoplasm of liver and intrahepatic bile duct; C78.00 Secondary malignant neoplasm of unspecified lung
CPT/HCPCS: 99214

== ENCOUNTER 2020-06-27 09:22 | Outpatient (CLI) | payer BC ==
--- NOTE | 2020-06-27 13:09 | CONSULTATION NOTE ---
Palliative Care Follow Up - Referral Referring Provider: Dr. Zoltan Mariscal Time of Visit: 11 60 minutes Referral setting: [facility] [place] Referral Reason: Constipation/Stage IV Rectal with mets to liver/lung - Information Sources Records reviewed: Previous records reviewed History/Review of Systems obtained from: Patient Exam limitations: No limitations - History of Present Illness Update Brief HPI Update: This is a 59-year-old gentleman with stage IV rectal cancer, with mets to liver and lung. He is currently receiving FOLFOX 6/Avastin since 04/2020 related to progression in left adrenal/lung/liver and abdominal nodes. Hope had been to be able to resect original tumor as had a good response initially with diagnosis and treatment in 06/2019, but on PET scan showed progression 05/07, he has had liver mets resection in 12/2019. Unfortunately continues to lose weight, currently is experiencing constipation, and does have some persistent fatigue. He has done fairly well tolerating treatment, with some persistent fatigue, intermittent constipation, some decrease in activity tolerance but remains very functional. Social History - Living Situation Living arrangement: At home Living Situation: Alone Support System: Patient lives alone, with his dogs. Which he walks 3 times a day. He likes to play the [employer] and ride motorcycles. 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 His sister has come from [place] to provide support, is currently back there. Patient is somewhat of an introvert, and perceives he has adequate support Medications/Allergies - Medications Home Medications: Ambulatory Orders Medication Instructions Recorded Confirmed Multivit-Min/FA/Lycopen/Lutein 1 tab PO DAILY 07/19/19 06/27/20 [Men 50 Plus Multivitamin Tab] Lidocaine/Prilocain 2.5% Cream 30 gm TOP DAILY PRN 07/26/19 06/27/20 [Emla 2.5% Cream] Prochlorperazine Maleate 10 mg PO Q6HR PRN 07/26/19 06/27/20 [Compazine] Cholecalciferol [Vitamin D3] 5,000 unit PO DAILY 08/02/19 06/27/20 amLODIPine [Norvasc] 5 mg PO DAILY 08/02/19 06/27/20 Iron Supplement 65 mg PO .QOD 09/14/19 06/27/20 Loperamide [Imodium] 2 mg PO Q4HR PRN MDD 8 tabs 09/14/19 06/27/20 polyethylene glycoL 3350 [Miralax] 17 mg PO DAILY PRN MDD BID 09/14/19 06/27/20 Potassium Chloride 10 meq PO DAILY 09/27/19 06/27/20 Diphenoxylate/Atropine [Lomotil] 1 - 2 tab PO QID PRN #40 tablet 03/07/20 06/27/20 Ondansetron HCl 8 mg PO TID PRN 04/25/20 06/27/20 Omeprazole Magnesium 20 mg PO DAILY 05/15/20 06/27/20 levOCARNitine tartrate 500 mg PO BID 05/29/20 06/27/20 [l-Carnitine] - Allergies Allergies/Adverse Reactions: Allergies Allergy/AdvReac Type Severity Reaction Status Date / Time No Known Drug Allergies Allergy Verified 06/26/20 13:37 Review of Systems - Constitutional Constitutional: reports: Fatigue (persistent;), Weakness, Weight stable (157). denies: Fever, Chills - Eyes Eyes: reports: Vision loss, Corrective lenses - Ears, Nose & Throat Ears, Nose & Throat: reports: Dry mouth. denies: Mouth lesions - Cardiovascular Cardiovascular: reports: Decr. exercise tolerance (working on progressive). denies: Edema - Respiratory Respiratory: denies: SOB at rest - Gastrointestinal Gastrointestinal: reports: Constipation (working on keeping soft and daily managed with miralax; needing more aggressive program), Rectal bleeding (occasional bleeding with stooling), Reflux/heartburn, Good appetite, Other (taste changes; abdominal hernia distal end of incision). denies: Nausea - Musculoskeletal Musculoskeletal: reports: Stiffness, Other (walks frequently with dogs) - Integumentary Integumentary: reports: Dryness, Nail changes - Neurological Neurological: reports: General weakness - Psychiatric Psychiatric: reports: Anxiety - Hematologic/Lymphatic Hematologic/Lymph: reports: Anemia (10.5). denies: Recurrent infections - All Other Systems All Other Systems: reports: Reviewed and negative Physical Exam - Vital Signs Temperature: 36.2 C Pulse Rate: 86 Respiratory Rate: 18 Blood Pressure: 119/79 - Physical Exam General Appearance: positive: Alert, Anxious Eyes Bilateral: positive: Normal inspection ENT: positive: No signs of dehydration Neck: positive: Trachea midline Cardiovascular: positive: Regular rate & rhythm Respiratory: positive: No respiratory distress Abdomen: positive: Non-tender, Soft, Other (slight umbilical hernia swelling; easily reduced; feels worsening but wearing belt) Skin: positive: Dryness (hands with cracking finger tips), Other (cracked fingers) Extremities: positive: No pedal edema Neurologic/Psychiatric: positive: Oriented x3, Mood/affect nml, Flat affect Palliative Care - POLST Patient has POLST: No Pain: No pain Tiredness/Fatigue: Mild (1-3) Drowsiness/Sedation: None Nausea: None Anorexia: Mild (1-3) Dyspnea: None Depression: None Anxiety: None Feelings of wellbeing/Perceived Quality of Life: Good, Acceptable, No change Sleep: Sleeps well Constipation: Yes, Intermittent constipation Performance Status: Patient does report some decline in activity, though still walks his dogs three times a day. He is looking forward to nicer weather so he can ride his motorcycle. He is able to manage his own ADLs. He has very little household tasks he needs to do, feels like he is managing without difficulty. - Palliative Care Discussion: Patient continues to somewhat "go with the flow", does not like to ask a lot of questions, is wondering if he will be a candidate again for possible surgical resection. He will be restaged after his six cycle, at this point in time that information should be available. Patient so far has had some cumulative effects, but is tolerating fairly well. We had discussed meeting with his mom, she is his main support. Did offer home visit so could have a chance to talk with both of them, either now or in the future. Discussed possibly her participating in his appointment after the staging scans. Recommended would be nice to have more than one person hearing information whether it is good or bad news. Patient perceives his quality of life is acceptable, continues to hope for the best and extended time. Results - Lab Results Lab results reviewed: Yes Impression and Recommendations - Palliative Care Impression: This is a 59-year-old gentleman with stage IV rectal cancer to liver, lung, left adrenal and abdominal nodes. He is currently receiving FOLFOX/Avastin since 04/2020 with progressive disease. He is having some persistent constipation, persistent fatigue, does have an umbilical hernia which in includes using hernia belt with some improvement, it easily reduces. Palliative care providing support regarding patient's symptom management, anxiety, and support for anticipatory guidance. Recommendations/Counseling Done: 1. Constipation. Patient continues to struggle with bowel program, has been consulted multiple times regarding titrating MiraLAX and senna, have encouraged increase MiraLAX to twice daily, and use of senna two tabs up to twice daily as well. Counseled regarding titration. Instructions written out. Patient acknowledges understanding. 2. Dry mouth. On examination no lesions noted nor oral candidiasis. Patient counseled on normal saline rinses, 3-4 times a day, to stimulate recovery of his taste buds, cheek lining looks somewhat suspicious. Encouraged not to use Listerine on a regular basis. Reviewed good oral care. 3. GERD. Patient is better controlled with omeprazole. We also discussed just got microbio him, encouraged to use fermented foods as well as yogurt to support gut health. Patient reports has had problems since radiation overall. 4. Cracked fingers, patient instructed on use of Eucerin or Aquaphor ointment and cotton gloves at nighttime for healing. 5. Advanced care planning. Patient continues to hope for the best, is somewhat anxious regarding pending scans, and implications for further treatment plan. Encouraged to include his mother who is his main support and oncology appointment. Offer up also noted to meet with palliative care at point feels would be helpful, can do a home visit or make arrangements for outpatient office visit. 60 minutes with [id number] visit, counseling regarding symptom management, review of labs and documentation, coordination of care with oncology team
== END 2020-06-27 09:23 | disposition home or self-care (01) ==
LOC: PC 09:22
PROVIDERS: ATTEND Nurse Practitioner Adult Health
DX: Z51.5 Encounter for palliative care (principal); K59.00 Constipation, unspecified; R68.2 Dry mouth, unspecified; K21.9 Gastro-esophageal reflux disease without esophagitis; L85.3 Xerosis cutis; C20 Malignant neoplasm of rectum; C78.7 Secondary malignant neoplasm of liver and intrahepatic bile duct; C78.00 Secondary malignant neoplasm of unspecified lung; C77.2 Secondary and unspecified malignant neoplasm of intra-abdominal lymph nodes; Z79.899 Other long term (current) drug therapy
CPT/HCPCS: 99215

== ENCOUNTER 2020-07-18 11:33 | Outpatient (CLI) | payer BC ==
[2020-07-18] MEDS ORDERED: IOPAMIDOL-300 100 ML VIAL ONE (11:37)
[2020-07-18] MEDS ORDERED: IOPAMIDOL-300 50 ML VIAL ONE (11:37)
[2020-07-18] MEDS ORDERED: IOPAMIDOL-300 100 ML VIAL IVP ONE (14:13)
--- NOTE | 2020-07-18 14:13 | CT Report ---
PROCEDURE: Abdomen/Pelvis W INDICATIONS: METASTATIC RECTAL CA CONTRAST: IV CONTRAST: Isovue 300 ml: 100 PO CONTRAST: Isovue 300 ml50 TECHNIQUE: After the administration of contrast, 5 mm thick sections acquired from the diaphragms to the sym physis. 5 mm thick coronal and sagittal reformats were acquired. For radiation dose reduction, the following was used: automated exposure control, adjustment of mA and/or kV according to patient size . COMPARISON: MRI dated 11/05/2019. CT dated 10/27/2019. FINDINGS: Image quality: Excellent. ABDOMEN: Lung bases: Lung bases are clear. Heart size is normal. Solid organs: Right hepatectomy has been performed. There are 2 adjacent cysts within the medial segm ent left hepatic lobe anteriorly. There is a new low-density focus within the lateral segment left he patic lobe anteriorly measuring 16 mm (series 4 image 20), as well as an adjacent, 7 mm hypodense foc us within the lateral segment left hepatic lobe, also new new. Gallbladder Biliary system is non dilated. Pancreas enhances normally. No right adrenal nodule s. There is a new heterogeneously enhancing mass within the left adrenal gland lateral limb measuring 33 mm. Kidneys demonstrate normal size and enhancement, without hydronephrosis. Peritoneum and bowel: There is moderate thickening of the rectum, as before. There is fat straining w ithin the adjacent presacral region. No free fluid or air. Nodes and vessels: No retroperitoneal or mesenteric adenopathy by size criteria. Aorta and inferior vena cava are normal in size. Miscellaneous: No ventral hernias. PELVIS: Genitourinary: Bladder wall thickness is normal. Miscellaneous: No inguinal hernias or adenopathy. Bones: No suspicious bony lesions. No vertebral body compression fractures. IMPRESSION: 1. New left adrenal metastasis. 2. Postsurgical sequelae. 3. Indeterminate low-density foci within the remaining liver, which could represent metastatic diseas e. 4. Persistent rectal thickening, possibly indicating neoplasm. Reviewed by: Roxy Hu MD on 07/18/2020 2:12 PM PDT Approved by: Roxy Hu MD on 07/18/2020 2:12 PM PDT Station ID: [id number]
[2020-07-18] MEDS ORDERED: IOPAMIDOL-300 50 ML VIAL PO ONE (14:14)
--- NOTE | 2020-07-18 14:41 | CT Report ---
PROCEDURE: CHEST W INDICATIONS: METASTATIC RECTAL CA CONTRAST: IV CONTRAST: Isovue 300 ml: 100 PO CONTRAST: Isovue 300 ml50 TECHNIQUE: After the administration of intravenous contrast, 5 mm thick sections acquired from the pulmonary api trung to the posterior costophrenic angles. 7 mm thick coronal MIP reformats were acquired. For radia tion dose reduction, the following was used: automated exposure control, adjustment of mA and/or kV according to patient size. COMPARISON: 10/27/[address] FINDINGS: Image quality: Excellent. Lungs and pleura: No acute air space opacities. No pleural effusions or pneumothorax. Central and peripheral airways are patent and normal in caliber. Mediastinum: Heart size is normal. Moderate calcification of the coronary vasculature. Small pericar dial effusion. No mediastinal or hilar adenopathy by size criteria. Thoracic aorta and central pulm onary arteries are normal in size. Esophagus is normal in caliber. No hiatal hernia. Bones and chest wall: No suspicious bony lesions. No vertebral body compression fractures. No axil karrie or supraclavicular adenopathy by size criteria. Thyroid gland is grossly unremarkable. Abdomen: Visualized portions of the upper abdomen demonstrate partial hepatectomy as well as indeter minate low-density foci within the lateral segment left hepatic lobe. New left adrenal mass. Upper ab dominal bowel loops are normal in caliber. IMPRESSION: 1. No evidence of metastatic disease to the chest. 2. New left adrenal metastasis. 3. Indeterminate hepatic low-density foci. 4. Coronary artery disease. Reviewed by: Roxy Hu MD on 07/18/2020 2:39 PM PDT Approved by: Roxy Hu MD on 07/18/2020 2:39 PM PDT Station ID: [id number]
== END 2020-07-18 11:34 | disposition home or self-care (01) ==
LOC: DI 11:33
PROVIDERS: ATTEND Physician Assistant
DX: C20 Malignant neoplasm of rectum (principal); C78.7 Secondary malignant neoplasm of liver and intrahepatic bile duct; C78.00 Secondary malignant neoplasm of unspecified lung; C79.72 Secondary malignant neoplasm of left adrenal gland
CPT/HCPCS: 71260; 74177; Q9967

== ENCOUNTER 2020-08-10 10:30 | Outpatient (CLI) | payer BC ==
--- NOTE | 2020-08-10 16:22 | CONSULTATION NOTE ---
Palliative Care Follow Up - Referral Referring Provider: Dr. Zoltan Mariscal Time of Visit: [id number] Referral setting: Home Referral Reason: Stage IV Cancer to liver/lung; malignant cachexia; goals of care - Information Sources Records reviewed: Previous records reviewed History/Review of Systems obtained from: Patient, Family (mother Carol) Exam limitations: No limitations - History of Present Illness Update Brief HPI Update: This is a sabas 59-year-old gentleman with stage IV rectal cancer to liver, lung, and adrenal nodule. Patient with recent restaging scan on 07/18/2020 with left lower lobe lung nodule resolved, decrease in adrenal nodule, and noted to left lobe liver lesions. Patient has received FOLFIRINOX x6 cycles, liver mets resection in 12/2019, and concurrent radiation/Xeloda completed in 02/2020. He has been currently on FOLFOX/bevacizumab since 05/07 now with partial response. Patient has had some pancytopenia related to the chemotherapy, and is currently receiving pegfilgrastim with side effects of severe fatigue usually resolving in 2 to 3 days. Patient's most persistent symptoms are fatigue, which does fluctuate, but most persistent and acute after chemotherapy. He has alternating diarrhea and constipation, but he has continue to titrate his bowel meds, unfortunately has developed a hemorrhoid. He also has worsening incisional abdominal hernia, but is easily reducible, and wearing a hernia belt. He is due to see the surgeon in the next week and a half. He is maintaining his weight at 150, but is challenged with taste changes, early satiety, and with fatigue meal prep. Palliative care CREATIVE ASSISTANT meeting with patient and his mother Margaret who is patient's main support. Because of the pandemic, she has not failed participate in visits, patient does include her and wants her to have an opportunity for support as well as able to ask questions regarding his current treatment regimen, and anticipatory guidance. Social History - Living Situation Living arrangement: At home Living Situation: Alone Support System: Patient lives at home with his 2 sabas dogs, which do keep him moving and involved. His main support is his mother Carol, and his sister who will be coming to visit again from [place] in the summer. 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 He likes palliative guitar, very devoted to his dogs, and right motorcycle. Medications/Allergies - Medications Home Medications: Ambulatory Orders Medication Instructions Recorded Confirmed Multivit-Min/FA/Lycopen/Lutein 1 tab PO DAILY 07/19/19 08/11/20 [Men 50 Plus Multivitamin Tab] Lidocaine/Prilocain 2.5% Cream 30 gm TOP DAILY PRN 07/26/19 08/11/20 [Emla 2.5% Cream] Prochlorperazine Maleate 10 mg PO Q6HR PRN 07/26/19 08/11/20 [Compazine] Cholecalciferol [Vitamin D3] 5,000 unit PO DAILY 08/02/19 08/11/20 amLODIPine [Norvasc] 5 mg PO DAILY 08/02/19 08/11/20 Iron Supplement 65 mg PO .QOD 09/14/19 08/11/20 Loperamide [Imodium] 2 mg PO Q4HR PRN MDD 8 tabs 09/14/19 08/11/20 polyethylene glycoL 3350 [Miralax] 17 mg PO DAILY PRN MDD BID 09/14/19 08/11/20 Potassium Chloride 10 meq PO DAILY 09/27/19 08/11/20 Diphenoxylate/Atropine [Lomotil] 1 - 2 tab PO QID PRN #40 tablet 03/07/20 08/11/20 Ondansetron HCl 8 mg PO TID PRN 04/25/20 08/11/20 Omeprazole Magnesium 20 mg PO DAILY 05/15/20 08/11/20 levOCARNitine tartrate 500 mg PO BID 05/29/20 08/11/20 [l-Carnitine] - Allergies Allergies/Adverse Reactions: Allergies Allergy/AdvReac Type Severity Reaction Status Date / Time No Known Drug Allergies Allergy Verified 07/11/20 10:16 Review of Systems - Constitutional Constitutional: reports: Fatigue (fluctuates; worse after PEG injection), Weakness, Weight loss (154). denies: Fever, Chills - Eyes Eyes: reports: Vision loss, Corrective lenses - Ears, Nose & Throat Ears, Nose & Throat: reports: Dry mouth. denies: Mouth lesions - Cardiovascular Cardiovascular: reports: Decr. exercise tolerance (still walking dogs 3x a day). denies: Edema - Respiratory Respiratory: denies: SOB at rest - Gastrointestinal Gastrointestinal: reports: Constipation (working on keeping soft and daily managed with miralax;), Reflux/heartburn (controlled with omeprazole), Early satiety, Good appetite, Other (taste changes; abdominal hernia distal end of incision with second protrusion; hemmorhoid). denies: Nausea - Musculoskeletal Musculoskeletal: reports: Stiffness - Integumentary Integumentary: reports: Dryness, Nail changes - Neurological Neurological: reports: General weakness - Psychiatric Psychiatric: reports: Anxiety - Hematologic/Lymphatic Hematologic/Lymph: reports: Anemia (9.8). denies: Recurrent infections - All Other Systems All Other Systems: reports: Reviewed and negative Physical Exam - Vital Signs Temperature: 97.9 C Pulse Rate: 82 Respiratory Rate: 18 O2 Saturation: 100 (ra @ rest) Blood Pressure: 118/72 - Physical Exam General Appearance: positive: Alert, Cachetic Eyes Bilateral: positive: Normal inspection ENT: positive: No signs of dehydration Neck: positive: Trachea midline Cardiovascular: positive: Regular rate & rhythm Respiratory: positive: No respiratory distress, Breath sounds nml Abdomen: positive: Soft, Tenderness (with palpation/reduction of abd. hernia). negative: Mass Skin: positive: Dryness (hands with cracking finger tips) Extremities: positive: No pedal edema Neurologic/Psychiatric: positive: Oriented x3, Mood/affect nml Palliative Care - POLST Patient has POLST: No Pain: Pain unchanged, Location (mild discomfort with hernia) Tiredness/Fatigue: Moderate (4-6) Drowsiness/Sedation: None Nausea: Mild (1-3) (had mild this am; took ondansetron with relief) Anorexia: Moderate (4-6), Weight loss Dyspnea: None Depression: None Anxiety: Mild (1-3) Feelings of wellbeing/Perceived Quality of Life: Good, Acceptable, No change Sleep: Variable sleep pattern Constipation: Yes, Intermittent constipation, Comment (influenced by chemotherapy schedule) Performance Status: Patient is an E[employer] 1. Able to manage his own ADLs, he is looking at moving to a 1 level townhouse versus stairs. He is walking his dogs 3 times a day, his energy does fluctuate so this is not always consistent. - Palliative Care Discussion: Home visit made today to facilitate family meeting, patient's main support is his mother Carol. He very much wanted to give her an opportunity to engage and ask questions, as well as is worried about her worrying about him. Patient does understand the seriousness of his illness, continues to focus on treatment to extend his quantity of life. Currently he feels his quality of life is doable even with the cumulative toxicities. Did spend time addressing questions regarding side effects, treatment plan, disease, and introduced some anticipatory guidance. We discussed hoping for the best, patient has done very well with his treatment, has been very committed to his treatment plan. He reports he likes some information, but not extensive and does not always ask a lot of questions but defers to his providers for his treatment plan. We did discuss given his unknown prognosis, though hoping for the best, patient is working on completing his end-of-life documents and advanced care planning, he has his final appointment with his refrigerated cargo clerk next week which will provide him some closure regarding this and most likely will help decrease anxiety. Patient does have a DPOA which is his mother Carol Peace [phone]. We will add other advanced care planning documents including POLST as patient is ready. Results - Lab Results Lab results reviewed: Yes Impression and Recommendations - Palliative Care Impression: This is a 59-year-old gentleman with stage IV rectal cancer to liver, lung, left adrenal, and lymph nodes. He is currently receiving FOLFOX/Avastin since 04/2020 with partial response. He does have moderate symptom burden, and continues with concern for malignant cachexia. Palliative care providing support for symptom management, psychosocial support and anticipatory guidance. Recommendations/Counseling Done: 1. Hemorrhoids. Patient counseled regarding importance of bowel program to keep bowels soft. Instructed on managing hemorrhoids with reparation H and Anusol suppositories. Patient will get appropriate products and acknowledged understanding. 2. Constipation. This alternates with diarrhea, patient does titrate appropriately MiraLAX and senna, is impacted by his chemotherapy with resulting diarrhea. 3. Abdominal incisional hernia. Patient has developed another herniated area above original abdominal incision. It is quite soft and reducible, tender only to palpation. Is wearing a hernia belt. He does have a appointment with Dr. Stein his surgeon on 08/31 and follow-up at that point as well. For other suggestions. 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 She does provide meals, and encouragement, patient instructed to increase his Ensure to twice daily. Patient had been as low as 150, reports he is 154 currently. This is still down from when I saw him on 06/27 of 157. 5. Fatigue. This is multifactorial, patient developing some pancytopenia as a cumulative effect of his chemotherapy. This was reviewed both with patient and mother regarding chemo side effects. Patient is continuing to take frequent walks, encourage focus on fluid status, as well as adequate nutrition. 6. Advance care planning. Reviewed patient's current end-of-life planning tasks, does feel like he is coming to an end regarding these things. Was able to engage and include his mother in these conversations regarding anticipatory guidance. Patient's goals are continue treatment and focus on quality of life, with hope for extended quantity of life. 60 minutes with greater than 50% of this spent in counseling regarding symptom management, education disease and treatment, anticipatory guidance and role of advanced care planning with family meeting.
== END 2020-08-10 10:31 | disposition home or self-care (01) ==
LOC: PC 10:30
PROVIDERS: ATTEND Nurse Practitioner Adult Health
DX: Z51.5 Encounter for palliative care (principal); K64.9 Unspecified hemorrhoids; K59.00 Constipation, unspecified; R19.7 Diarrhea, unspecified; K43.2 Incisional hernia without obstruction or gangrene; R64 Cachexia; D61.810 Antineoplastic chemotherapy induced pancytopenia; R53.83 Other fatigue; T45.8X5A Adverse effect of other primarily systemic and hematological agents, initial encounter; C20 Malignant neoplasm of rectum; C78.7 Secondary malignant neoplasm of liver and intrahepatic bile duct; C78.00 Secondary malignant neoplasm of unspecified lung; C79.72 Secondary malignant neoplasm of left adrenal gland; C77.9 Secondary and unspecified malignant neoplasm of lymph node, unspecified
CPT/HCPCS: 99350

== ENCOUNTER 2020-09-05 09:39 | Outpatient (CLI) | payer BC | END 2020-09-05 09:40 | disposition home or self-care (01) | LOC: PC 09:39 | PROVIDERS: ATTEND Nurse Practitioner Adult Health | DX: Z53.9 Procedure and treatment not carried out, unspecified reason (principal) ==

== ENCOUNTER 2020-09-12 10:25 | Outpatient (CLI) | payer BC ==
--- NOTE | 2020-09-12 13:23 | CONSULTATION NOTE ---
Palliative Care Follow Up - Referral Referring Provider: Dr. 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 Patient is here for his FOLFOX/bevacizumab and unfortunately presents again with thrombocytopenia, his platelets were 34,000 last week and had to hold treatment, they are up to 38,000 but has not met the threshold for 50,000. He is quite anxious regarding this, he has always been a full court press kind of stephen, but has been receiving aggressive therapy since his diagnosis 06/2019. Patient's most persistent symptoms continue to be fatigue, alternating diarrhea and constipation, intermittent rectal bleeding, and difficulty with maintaining his weight.This is challenged by his taste changes, early satiety, meal prep, and bowel issues. He did see the surgeon, reports that "some point" he may need to repair, he is developing a second hernia proximal to the first, continues to wear his hernia belt. It is still easily reducible and not painful. Social History - Living Situation Living arrangement: At home Living Situation: Alone Support System: Patient lives in his home on [employer] housing, with his 2 sabas dogs, he is hoping to move to a single level, he currently has a townhouse with 2 stories. He likes to play the [employer], spends time with his family particularly his mother, his sister comes intermittently from [place] to support him. He feels like he has adequate social support, he is somewhat of an introvert per his own description Medications/Allergies - Medications Home Medications: Ambulatory Orders Medication Instructions Recorded Confirmed Multivit-Min/FA/Lycopen/Lutein 1 tab PO DAILY 07/19/19 09/05/20 [Men 50 Plus Multivitamin Tab] Lidocaine/Prilocain 2.5% Cream 30 gm TOP DAILY PRN 07/26/19 09/05/20 [Emla 2.5% Cream] Prochlorperazine Maleate 10 mg PO Q6HR PRN 07/26/19 09/05/20 [Compazine] Cholecalciferol [Vitamin D3] 5,000 unit PO DAILY 08/02/19 09/05/20 amLODIPine [Norvasc] 5 mg PO DAILY 08/02/19 09/05/20 Iron Supplement 65 mg PO .QOD 09/14/19 09/05/20 Loperamide [Imodium] 2 mg PO Q4HR PRN MDD 8 tabs 09/14/19 09/05/20 polyethylene glycoL 3350 [Miralax] 17 mg PO DAILY PRN MDD BID 09/14/19 09/05/20 Potassium Chloride 10 meq PO DAILY 09/27/19 09/05/20 Diphenoxylate/Atropine [Lomotil] 1 - 2 tab PO QID PRN #40 tablet 03/07/20 09/05/20 ondansetron HCL [Ondansetron HCl] 8 mg PO TID PRN 04/25/20 09/05/20 Omeprazole Magnesium 20 mg PO DAILY 05/15/20 09/05/20 levOCARNitine tartrate 500 mg PO BID 05/29/20 09/05/20 [l-Carnitine] - Allergies Allergies/Adverse Reactions: Allergies Allergy/AdvReac Type Severity Reaction Status Date / Time No Known Drug Allergies Allergy Verified 09/05/20 13:42 Review of Systems - Constitutional Constitutional: reports: Fatigue (fluctuates; worse after PEG injection), Weakness, Weight loss. denies: Fever, Chills - Eyes Eyes: reports: Vision loss, Corrective lenses - Ears, Nose & Throat Ears, Nose & Throat: reports: Dry mouth. denies: Mouth lesions - Cardiovascular Cardiovascular: reports: Decr. exercise tolerance (still walking dogs 3x a day). denies: Edema - Respiratory Respiratory: denies: SOB at rest - Gastrointestinal Gastrointestinal: reports: Constipation (working on keeping soft and daily managed with miralax;), Rectal bleeding, Reflux/heartburn (controlled with omeprazole), Early satiety, Good appetite, Other (taste changes; abdominal hernia distal end of incision with second protrusion; hemmorhoid). denies: Nausea - Genitourinary Genitourinary: reports: Other (reports concentrated urine) - Musculoskeletal Musculoskeletal: reports: Stiffness - Integumentary Integumentary: reports: Dryness, Nail changes - Neurological Neurological: reports: General weakness - Psychiatric Psychiatric: reports: Anxiety (worsened with holding chemo) - Hematologic/Lymphatic Hematologic/Lymph: reports: Anemia (8.9). denies: Recurrent infections - All Other Systems All Other Systems: reports: Reviewed and negative Physical Exam - Vital Signs Temperature: 97.3 C Pulse Rate: 85 Respiratory Rate: 16 Blood Pressure: 112/75 - Physical Exam General Appearance: positive: Alert, Cachetic Eyes Bilateral: positive: Normal inspection ENT: positive: No signs of dehydration Neck: positive: Trachea midline Cardiovascular: positive: Regular rate & rhythm Respiratory: positive: No respiratory distress, Breath sounds nml Abdomen: positive: Soft, Tenderness (with palpation/reduction of abd. hernia). negative: Mass Skin: positive: Dryness (hands with cracking finger tips) Extremities: positive: No pedal edema Neurologic/Psychiatric: positive: Oriented x3, Depressed mood/affect Palliative Care - POLST Patient has POLST: No POLST Status: Full Code Pain: Pain worsening, Location (rectal area; increased after stooling) Tiredness/Fatigue: Mild (1-3) Drowsiness/Sedation: None Nausea: None Anorexia: Moderate (4-6) Dyspnea: None Depression: None Anxiety: None Feelings of wellbeing/Perceived Quality of Life: Good, Acceptable, No change Sleep: Variable sleep pattern Constipation: Yes, Unmanaged, Intermittent constipation Performance Status: Patient remains at an ECOG 1, he is able to manage his own ADLs, he tries to stay active, does need to walk his dogs 3 times a day. He does see himself as slowing down some, but this is more related to his fatigue, as well as some rectal discomfort. - Palliative Care Discussion: Patient is disappointed, he is not to receive chemotherapy today. This does increase his anxiety, as he does understand it is the treatment is keeping the disease under control. He continues to cope by staying in the present, but has taking care of his end-of-life planning, he does have good support through his mother who is also his DPOA. Patient continues to hope for the best, and try not to get discouraged. Psychosocial support provided today. Results - Lab Results Lab results reviewed: Yes Impression and Recommendations - Palliative Care Impression: This is a sabas 59-year-old gentleman with stage IV rectal cancer to the liver, lung, left adrenal and lymph nodes. He is currently receiving FOLFOX/Avastin since with partial response. He does have moderate symptom burden, and continues with concern for malignant cachexia. Palliative care providing support for symptom management, psychosocial support and anticipatory guidance Recommendations/Counseling Done: 1. Hemorrhoids. Patient continue to struggle with finding balance for her bowel program, alternating with constipation and diarrhea, does have Preparation H, but does have intermittent bleeding. Unclear if this is only hemorrhoids, has seen surgeon recently. 2. Malignant cachexia. Patient continues to struggle with taste changes, early satiety, continued to auto travel counselor regarding strategies for increasing calories and fluids. Counseling reviewed again regarding use of smoothies, ways to maximize nutritional content with these, as well as appropriate fiber. Patient at this point in time continues to not be interested in further appetite stimulant medication. 3. Fatigue. This is multifactorial, patient continues with some persistent pancytopenia as a cumulative effect of his chemotherapy. Patient continues to take walks, encouraged on hydration, as well as focus on nutrition. 4. Anxiety. Counseling provided to normalize patient's feelings of grief and loss, anxiety and concern, and anticipatory guidance provided. 5. Advanced care planning. Patient continues to move forward with completing end-of-life planning tasks, is feeling positive about having these completed. Patient's goals remain to continue treatment and focus on quality of life with hope for extending quantity of life. Will revisit healthcare directives with next visit. 30 minutes with review of chart, labs, [id number], counseling provided for symptom management, and coordination of care with oncology team
== END 2020-09-12 10:26 | disposition home or self-care (01) ==
LOC: PC 10:25
PROVIDERS: ATTEND Nurse Practitioner Adult Health
DX: Z51.5 Encounter for palliative care (principal); R64 Cachexia; R53.83 Other fatigue; D69.59 Other secondary thrombocytopenia; R43.9 Unspecified disturbances of smell and taste; R68.81 Early satiety; T45.1X5A Adverse effect of antineoplastic and immunosuppressive drugs, initial encounter; F41.9 Anxiety disorder, unspecified; K59.00 Constipation, unspecified; R19.7 Diarrhea, unspecified; K64.9 Unspecified hemorrhoids; K43.2 Incisional hernia without obstruction or gangrene; C20 Malignant neoplasm of rectum; Z79.899 Other long term (current) drug therapy
CPT/HCPCS: 99214

== ENCOUNTER 2020-10-05 11:31 | Outpatient (CLI) | payer BC ==
[2020-10-05] MEDS ORDERED: IOVERSOL 320 50 ML VIAL ONE (11:50)
[2020-10-05] MEDS ORDERED: IOVERSOL 320 100 ML VIAL IVP ONE ×2 (13:08→16:29)
[2020-10-05] MEDS ORDERED: IOVERSOL 320 50 ML VIAL PO ONE (16:29)
--- NOTE | 2020-10-05 17:03 | CT Report ---
PROCEDURE: Abdomen/Pelvis W INDICATIONS: RECTAL CA CONTRAST: IV CONTRAST: Optiray 320 ml: 100 PO CONTRAST: Optiray 320 ml50 TECHNIQUE: After the administration of oral and intravenous contrast, 5 mm thick sections acquired from the diap hragms to the symphysis. 5 mm thick coronal and sagittal reformats were acquired. For radiation dos e reduction, the following was used: automated exposure control, adjustment of mA and/or kV accordin g to patient size. COMPARISON: 07/18/2020 FINDINGS: Image quality: Excellent. ABDOMEN: Lung bases: Lung bases are clear. Heart size is normal. Minimal pericardial effusion. Solid organs: Again noted is partial resection of the liver. Liver hypodensities or increasing in size consistent w ith increasing metastatic lesions. Foil Wrapper lesions are as follows: Liver lesion 1: Current image 17/3 and previous image 20/4, lateral segment of left lobe, increased f rom 1.3 cm to 1.9 cm. Liver lesion 2: Current image 15/3 and previous image 21/4, increased from 1.3 cm to 1.6 cm. Liver lesion 3: Current image 15/3 and previous image 22/4, increased from 1.3 to 1.6 cm, as well. Gallbladder is surgically absent. Mild splenomegaly. Biliary system is non dilated. Pancreas enhanc es normally. The metastatic left adrenal lesion is increased in size since the prior study. On previo us image 28/4 it measured 3.8 x 2.2 cm. On current image 26/3 it measures 4.8 x 2.9 cm. Kidneys demon strate normal size and enhancement, without hydronephrosis. Peritoneum and bowel: Again noted is diffuse rectal wall thickening. This may be progressed. Developm ent of mild perihepatic ascites. Nodes and vessels: No retroperitoneal or mesenteric adenopathy by size criteria. Aorta and inferior vena cava are normal in size. Miscellaneous: No ventral hernias. PELVIS: Genitourinary: Mild bladder wall thickening. Miscellaneous: No inguinal hernias or adenopathy. Bones: No suspicious bony lesions. No vertebral body compression fractures. IMPRESSION: 1. Increase in size of metastatic lesion to the left adrenal. 2. Increasing size of multiple liver lesions is consistent with progression of metastatic disease. 3. Development of mild ascites. 4. Persistent diffuse rectal wall thickening, possibly progressed, suggesting possible progression of rectal neoplasm. Reviewed by: Frank Reveles MD on 10/05/2020 5:01 PM PDT Approved by: Frank Reveles MD on 10/05/2020 5:01 PM PDT Station ID: [id number]
--- NOTE | 2020-10-05 17:11 | CT Report ---
PROCEDURE: CHEST W INDICATIONS: RECTAL CA CONTRAST: IV CONTRAST: Optiray 320 ml: 100 PO CONTRAST: Optiray 320 ml50 TECHNIQUE: After the administration of intravenous contrast, images were acquired from the pulmonary apices to t he posterior costophrenic angles. Multiplanar MIP reformats were acquired. For radiation dose reduc tion, the following was used: automated exposure control, adjustment of mA and/or kV according to pa tient size. COMPARISON: 07/18/[address], CT of the abdomen and pelvis from today. FINDINGS: Image quality: Excellent. Lungs and pleura: Interval development of a pulmonary nodule in the left lower lobe on image 158/3 m easuring 9 mm or metastatic lesion. Interval development of a 4 mm pulmonary nodule, anterior basal s egment of right lower lobe, image 223/3, consistent with a second pulmonary metastatic lesion. No acu te air space opacities. No pleural effusions or pneumothorax. Central and peripheral airways are pa tent and normal in caliber. Mediastinum: Heart size is normal. No pericardial effusion. No mediastinal or hilar adenopathy by size criteria. Thoracic aorta and central pulmonary arteries are normal in size. Esophagus is willem l in caliber. No hiatal hernia. Bones and chest wall: No suspicious bony lesions. No acute vertebral body compression fractures. Th ere are numerous mild chronic compressions, involving T3, T4, T5, T8, T9, T10, and T12. No axillary o r supraclavicular adenopathy by size criteria. Thyroid is unremarkable. Right chest Port-A-Cath. Abdomen: Significant enlargement of the left adrenal metastatic lesion and interval increase in size of multiple small liver lesions consistent with progression of metastatic disease. Please refer to a separate report for CT abdomen and pelvis findings. IMPRESSION: 1. Interval development of pulmonary metastatic disease. 2. Progression of left adrenal metastatic disease and hepatic metastatic disease. Please refer to a s eparate report. 3. Numerous chronic compressions, as described above. These are most likely osteoporotic compressions . However, cannot exclude an infiltrative process that is not showing up on CT. Consider spine MR for further evaluation. CLINICAL RECOMMENDATION STATEMENTS: In patients <35 years with an ITN detected on CT, MRI, or extrathyroidal ultrasound, the Committee re commends further evaluation with dedicated thyroid ultrasound if the nodule is ?1 cm and has no suspi cious imaging features, and if the patient has normal life expectancy. In patients ?35 years with an ITN detected on CT, MRI, or extrathyroidal ultrasound, the Committee re commends further evaluation with dedicated thyroid ultrasound if the nodule is ?1.5 cm and has no fidencio picious imaging features, and if the patient has normal life expectancy. (ACR, 2014) Reviewed by: Frank Reveles MD on 10/05/2020 5:09 PM PDT Approved by: Frank Reveles MD on 10/05/2020 5:09 PM PDT Station ID: [id number]
== END 2020-10-05 11:32 | disposition home or self-care (01) ==
LOC: DI 11:31
PROVIDERS: ATTEND Internal Medicine Hematology & Oncology
DX: C20 Malignant neoplasm of rectum (principal); C79.72 Secondary malignant neoplasm of left adrenal gland; C78.7 Secondary malignant neoplasm of liver and intrahepatic bile duct; R18.8 Other ascites; R93.3 Abnormal findings on diagnostic imaging of other parts of digestive tract; C78.02 Secondary malignant neoplasm of left lung; R93.7 Abnormal findings on diagnostic imaging of other parts of musculoskeletal system
CPT/HCPCS: 71260; 74177; Q9967

== ENCOUNTER 2020-10-09 08:32 | Outpatient (CLI) | payer BC ==
--- NOTE | 2020-10-09 15:45 | CONSULTATION NOTE ---
Palliative Care Follow Up - Referral Referring Provider: Dr. Zoltan Mariscal Time of Visit: 0930 45 minutes Referral setting: [facility] [place] Referral Reason: Pain of neoplastic origin/Met Rectal CA/Goals of care - Information Sources Records reviewed: Previous records reviewed History/Review of Systems obtained from: Patient Exam limitations: No limitations - History of Present Illness Update Brief HPI Update: This is a sabas 59-year-old gentleman with stage IV rectal cancer to liver and lung, left adrenal, and abdominal nodes. His restaging scan on 10/06/2019 when reviewed had further progression in lung and liver, his perirectal mass also increased which is the cause of his pain. He has had persistent thrombocytopenia, and unable to proceed with FOLFOX/bevacizumab. Dr. Mariscal spoke with him today to try regorafenib, awaiting insurance approval. Patient with escalating pain, reports rectal spasms, increased pain with bowel movements, denies rectal bleeding, and describes feeling of ongoing rectal pressure. Patient has actually not taking anything at this point, but is having increased discomfort overall. Patient has remained weight neutral over the last few weeks, is eating, but does have persistent fatigue and is notably and appropriately upset over his worsening prognosis. Dr. Mariscal did introduce hospice, with further goal to discuss with palliative care Past Medical History: Stage IV rectal cancer to liver and lung 06/2019, biopsy-proven, full [place] four 2020 x 6 cycles with remission and lung, liver mets resection 12/2019, concurrent radiation/Xeloda to rectal primary tumor done 02/2020, now presents with progression of left adrenal, lung, liver, abdominal nodes since 05/07 FOLFOX bevacizumab. Social History - Living Situation Living arrangement: At home Living Situation: Alone Support System: Patient recently moved to 1 level apartment, and [employer] housing with his 2 sabas dogs. He is supported by his mother, his sister from [place] is here, he does not like to "be a bother" and fortunately did not reach out with worsening pain. 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 Medications/Allergies - Medications Home Medications: Ambulatory Orders Medication Instructions Recorded Confirmed Multivit-Min/FA/Lycopen/Lutein 1 tab PO DAILY 07/19/19 10/09/20 [Men 50 Plus Multivitamin Tab] Lidocaine/Prilocain 2.5% Cream 30 gm TOP DAILY PRN 07/26/19 10/09/20 [Emla 2.5% Cream] Prochlorperazine Maleate 10 mg PO Q6HR PRN 07/26/19 10/09/20 [Compazine] Cholecalciferol [Vitamin D3] 5,000 unit PO DAILY 08/02/19 10/09/20 amLODIPine [Norvasc] 5 mg PO DAILY 08/02/19 10/09/20 Iron Supplement 65 mg PO .QOD 09/14/19 10/09/20 Loperamide [Imodium] 2 mg PO Q4HR PRN MDD 8 tabs 09/14/19 10/09/20 polyethylene glycoL 3350 [Miralax] 17 mg PO DAILY PRN MDD BID 09/14/19 10/09/20 Potassium Chloride 10 meq PO DAILY 09/27/19 10/09/20 Diphenoxylate/Atropine [Lomotil] 1 - 2 tab PO QID PRN #40 tablet 03/07/20 10/09/20 ondansetron HCL [Ondansetron HCl] 8 mg PO TID PRN 04/25/20 10/09/20 Omeprazole Magnesium 20 mg PO DAILY 05/15/20 10/09/20 levOCARNitine tartrate 500 mg PO BID 05/29/20 10/09/20 [l-Carnitine] Acetaminophen [Acetaminophen Extra 1,000 mg PO TID 10/09/20 10/09/20 Strength] oxyCODONE [Roxicodone] 1 - 2 tab PO .3-4 PRN 10/09/20 10/09/20 - Allergies Allergies/Adverse Reactions: Allergies Allergy/AdvReac Type Severity Reaction Status Date / Time No Known Drug Allergies Allergy Verified 10/09/20 09:28 Review of Systems - Constitutional Constitutional: reports: Fatigue (worsening), Weakness, Weight stable. denies: Fever, Chills - Eyes Eyes: reports: Vision loss, Corrective lenses - Ears, Nose & Throat Ears, Nose & Throat: reports: Dry mouth. denies: Mouth lesions - Cardiovascular Cardiovascular: reports: Decr. exercise tolerance (still walking dogs 3x a day). denies: Edema - Respiratory Respiratory: denies: SOB at rest - Gastrointestinal Gastrointestinal: reports: Constipation (working on keeping soft and daily managed with miralax twice a day with daily Senna;), Reflux/heartburn (controlled with omeprazole), Early satiety, Good appetite, Other (taste changes; abdominal hernia distal end of incision with second protrusion;). denies: Rectal bleeding (c/o pressure and feeling need to defecate), Nausea - Genitourinary Genitourinary: reports: Other (reports concentrated urine) - Musculoskeletal Musculoskeletal: reports: Stiffness - Integumentary Integumentary: reports: Dryness, Nail changes - Neurological Neurological: reports: General weakness - Psychiatric Psychiatric: reports: Anxiety (worsened with holding chemo) - Hematologic/Lymphatic Hematologic/Lymph: reports: Anemia (10.0). denies: Recurrent infections - All Other Systems All Other Systems: reports: Reviewed and negative Physical Exam - Vital Signs Temperature: 36.2 C Pulse Rate: 90 Respiratory Rate: 18 Blood Pressure: 136/87 - Physical Exam General Appearance: positive: Alert, Cachetic Eyes Bilateral: positive: Normal inspection ENT: positive: No signs of dehydration Neck: positive: Trachea midline Cardiovascular: positive: Regular rate & rhythm Respiratory: positive: No respiratory distress Abdomen: positive: Soft, Tenderness (with palpation/reduction of abd. hernia). negative: Mass Skin: positive: Dryness (hands with cracking finger tips) Extremities: positive: No pedal edema Neurologic/Psychiatric: positive: Oriented x3, Depressed mood/affect, Other (tearful) Palliative Care - POLST Patient has POLST: No Pain: Pain worsening, Location (rectum) Tiredness/Fatigue: Moderate (4-6) Drowsiness/Sedation: Moderate (4-6) Nausea: Mild (1-3) Anorexia: Mild (1-3) Dyspnea: Mild (1-3) Depression: Moderate (4-6) Anxiety: Moderate (4-6) Feelings of wellbeing/Perceived Quality of Life: Fair, Acceptable Sleep: Variable sleep pattern Constipation: No, Managed Performance Status: Does get more easily fatigued, is pacing his activity. Feels like he is somewhat limited by his rectal spasms, feeling like he has to go all the time. Managing ADLs currently. - Palliative Care Discussion: Patient is quite distressed over his impending decline, does understand at this point limited life expectancy of months not years, is hoping will get approval for oral chemotherapy. Patient with very little understanding of hospice, introduced hospice as a support particularly for his family. Patient does want to have a at home, does not want to be at his parents house. We talked about given his mother's commitment and sisters concern, would recommend a family meeting next week, patient gets quite distressed with too many questions and too much information. Did introduce though and responded to his questions about expected decline and what might expect, and concern though about obstructive symptoms given his rectal tumor. Patient has done a nice job in preparing for end-of-life, has his affairs in order, but has not thought about end-of-life care and support. This was introduced gently. Results - Lab Results Lab results reviewed: Yes Impression and Recommendations - Palliative Care Impression: This is a sabas 60-year-old gentleman now with progressive stage IV rectal cancer, and increased rectal mass. Patient with increased pain, obstructive symptoms, persistent and worsening fatigue, and few treatment options. Patient has chosen to move forward with oral chemotherapy, awaiting insurance approval. Palliative care providing support for pain and symptom management, anticipatory guidance, and psychosocial support Recommendations/Counseling Done: 1. Pain of neoplastic origin. Patient does have some oxycodone at home from surgery, has not even trialed acetaminophen. Recommended scheduled acetaminophen 1000 mg 3 times daily, and will supplement oxycodone 5 mg 1-2 every 3-4 hours. Patient quite hesitant, most significant pain is in the evening. Instructed to start prior to bedtime, and repeat if awakens in pain. Counseling provided regarding principles of pain management, will start him on a short acting, and transition him to time-released pain medication based on his overall use. Patient denies any bleeding at this point in time, has managed to keep medication soft. Instructed to increase senna with starting of the pain pills. 2. Constipation. This is multifactorial, patient is managed to keep his stools soft, though does cause increased pain and discomfort with bowel movements. Patient at high risk for further obstructive symptoms and bleeding. Patient is using MiraLAX twice daily, and senna 2 tabs at bedtime, instructed to increase senna at least to 2 tabs twice daily with introduction of pain pills. 3. Stage IV rectal cancer, patient was given option of supportive/hospice care versus oral chemotherapy. Patient is always chosen most aggressive treatment, is awaiting insurance approval. Did introduce and counseling provided regarding hospice care at some place in the continuum, patient does have a at home. He is in agreement to family conference next week. 4. Advanced care planning. Patient does have DPOA, and healthcare directive. Patient still needs a POLST, when patient is ready to further understand transition in the context of his current healthcare situation. We will continue to work with patient and family for anticipatory guidance, support during oral chemotherapy, and transition to hospice when appropriate 45 minutes with Review of chart, oncology notes, consultation with oncology, counseling for pain and symptom management, anticipatory guidance, and introduction of hospice.
== END 2020-10-09 08:33 | disposition home or self-care (01) ==
LOC: PC 08:32
PROVIDERS: ATTEND Nurse Practitioner Adult Health
DX: Z51.5 Encounter for palliative care (principal); G89.3 Neoplasm related pain (acute) (chronic); K59.00 Constipation, unspecified; R53.83 Other fatigue; D69.6 Thrombocytopenia, unspecified; C20 Malignant neoplasm of rectum; C78.7 Secondary malignant neoplasm of liver and intrahepatic bile duct; C78.00 Secondary malignant neoplasm of unspecified lung; C77.2 Secondary and unspecified malignant neoplasm of intra-abdominal lymph nodes; C79.72 Secondary malignant neoplasm of left adrenal gland; Z79.899 Other long term (current) drug therapy
CPT/HCPCS: 99215

== ENCOUNTER 2020-10-16 10:58 | Outpatient (CLI) | payer BC ==
--- NOTE | 2020-10-16 15:53 | CONSULTATION NOTE ---
Palliative Care Follow Up - Referral Referring Provider: Dr. 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 He has shown progression of left adrenal, lung, liver abdominal nodes, and was starting now on regorafenib, received his chemo teaching today. He does have a known increasing mass of 4 cm anteriorly, having increased pain particularly with bowel movements, he has been trialing oxycodone with increased dosing of 2 tabs at a time and needing 2-3 doses daily. Patient is meeting with palliative care today, to review pain management, and further titrate pain medication, with the understanding would be transitioning to long-acting medication, will initiate morphine 15 mg twice daily. Patient has been working with his bowel meds, trying to keep stools soft and somewhat loose, as it does exacerbate his pain when bowels move. He reports that has continued to be quite loose, particularly in the evenings. He is currently been taking MiraLAX and senna, but is finding it quite watery. Patient also remains quite anxious, regarding his impending decline. His understanding is of limited life expectancy most likely 3 months, we do have a family conference set up for this , to include his sister and mother who would be most likely his primary caregivers. Patient himself likes little information, but does understand his family will be looking for more information and anticipatory guidance. Past Medical History: Stage IV rectal cancer liver and lung 06/2019, FOLFIRINOX x6 cycles with remission of lung, liver mets resection 12/2019, concurrent radiation and Xeloda to primary rectal tumor 02/2020 completed. Had progression with FOLFOX bevacizumab, now transitioning to regular of the [facility]. Patient has had ongoing malignant cachexia though he has managed to maintain his weight currently at around 155 Social History - Living Situation Living arrangement: At home Living Situation: Alone Support System: Patient recently moved to 1 level in June have all seen, he is currently managing all his own ADLs. He is supported by his mother who lives nearby, his sister is visiting from [place]. He has 2 dogs, has taken care of all his end-of-life arrangements. Medications/Allergies - Medications Home Medications: Ambulatory Orders Medication Instructions Recorded Confirmed Multivit-Min/FA/Lycopen/Lutein 1 tab PO DAILY 07/19/19 10/16/20 [Men 50 Plus Multivitamin Tab] Lidocaine/Prilocain 2.5% Cream 30 gm TOP DAILY PRN 07/26/19 10/16/20 [Emla 2.5% Cream] Prochlorperazine Maleate 10 mg PO Q6HR PRN 07/26/19 10/16/20 [Compazine] Cholecalciferol [Vitamin D3] 5,000 unit PO DAILY 08/02/19 10/16/20 amLODIPine [Norvasc] 5 mg PO DAILY 08/02/19 10/16/20 Iron Supplement 65 mg PO .QOD 09/14/19 10/16/20 Loperamide [Imodium] 2 mg PO Q4HR PRN MDD 8 tabs 09/14/19 10/16/20 polyethylene glycoL 3350 [Miralax] 17 mg PO DAILY PRN MDD BID 09/14/19 10/16/20 Potassium Chloride 10 meq PO DAILY 09/27/19 10/16/20 Diphenoxylate/Atropine [Lomotil] 1 - 2 tab PO QID PRN #40 tablet 03/07/20 10/16/20 ondansetron HCL [Ondansetron HCl] 8 mg PO TID PRN 04/25/20 10/16/20 Omeprazole Magnesium 20 mg PO DAILY 05/15/20 10/16/20 levOCARNitine tartrate 500 mg PO BID 05/29/20 10/16/20 [l-Carnitine] oxyCODONE [Roxicodone] 2 tab PO . 3 HOURS PRN 10/09/20 10/16/20 Regorafenib [Stivarga] 160 mg PO DAILY 10/12/20 10/16/20 Morphine ER [Morphine Sulfate ER] 15 mg PO BID 10/16/20 10/16/20 - Allergies Allergies/Adverse Reactions: Allergies Allergy/AdvReac Type Severity Reaction Status Date / Time No Known Drug Allergies Allergy Verified 10/09/20 09:28 Review of Systems - Constitutional Constitutional: reports: Fatigue, Weakness, Weight loss - Eyes Eyes: reports: Vision loss, Corrective lenses - Ears, Nose & Throat Ears, Nose & Throat: reports: Dry mouth. denies: Mouth lesions - Cardiovascular Cardiovascular: reports: Decr. exercise tolerance (still walking dogs 3x a day). denies: Edema - Gastrointestinal Gastrointestinal: reports: Constipation, Rectal bleeding, Reflux/heartburn, Early satiety, Good appetite, Other - Genitourinary Genitourinary: reports: Other (reports concentrated urine) - Musculoskeletal Musculoskeletal: reports: Stiffness - Integumentary Integumentary: reports: Dryness, Nail changes - Neurological Neurological: reports: General weakness - Psychiatric Psychiatric: reports: Anxiety (worsened with holding chemo) - Hematologic/Lymphatic Hematologic/Lymph: denies: Recurrent infections - All Other Systems All Other Systems: reports: Reviewed and negative Physical Exam - Vital Signs Temperature: 36.2 C Pulse Rate: 84 Respiratory Rate: 16 O2 Saturation: 100 Blood Pressure: 127/79 - Physical Exam General Appearance: positive: Alert, Anxious, Cachetic Eyes Bilateral: positive: Normal inspection ENT: positive: No signs of dehydration Neck: positive: Trachea midline Cardiovascular: positive: Regular rate & rhythm Respiratory: positive: No respiratory distress Abdomen: positive: Soft, Tenderness (hernia site), Distended (mild/new) Skin: positive: Dryness Extremities: positive: No pedal edema Neurologic/Psychiatric: positive: Oriented x3, Depressed mood/affect Palliative Care - POLST Patient has POLST: No Pain: Pain improved, Location (rectum; nobles worse with bowel movements; most problematic in evening time; interferes with sleep), Severity (8/10 worse; 2/10 during day), Comment (improved with use of oxycodone-10 mg more effective; lasting only 3 hours) Tiredness/Fatigue: Mild (1-3) Drowsiness/Sedation: None Nausea: None Anorexia: Mild (1-3) Dyspnea: None Depression: None Anxiety: None Feelings of wellbeing/Perceived Quality of Life: Fair, Acceptable, Worsening Sleep: Sleep improved Constipation: No, Opoid induced, Managed Performance Status: Patient has mostly been limited by his pain, reports this is better, is able to go out and walk the dogs again. He is able to do his own self-care, is somewhat weaker but independent in his ADLs. - Palliative Care Discussion: Patient with high anxiety regarding impending decline, likes minimal information regarding what to expect, is hopeful for both quality and quantity of time. He does understand though his family has questions, is willing to have a family meeting to be able to provide support, he is quite anxious about his sister drilling down, he is really looking this opportunity for his mother to process some of her anticipatory grief and prepare for the future. Patient has been working hard to wrap up his end-of-life affairs, has his legal and financial affairs in order, last piece would be a POLST, will introduce this at our visit on . Results - Lab Results Lab results reviewed: Yes Impression and Recommendations - Palliative Care Impression: This is a sabas 60-year-old gentleman with progressive stage IV rectal cancer, increased rectal mass and worsening pain. Patient was initiated on opioids, with some improvement, does need further titration will transition to long- acting morphine. Patient has chosen to move forward with oral cancer treatment, will be starting tomorrow. Patient does understand he has limited options in the future. Palliative care providing support for pain and symptom management, psychosocial support and anticipatory guidance Recommendations/Counseling Done: 1. Pain of neoplastic origin. Scheduled acetaminophen was not effective, did trial oxycodone, did find 10 mg most effective dose, though does find it only lasts about 3 hours. Counseling provided regarding long-acting and short acting medications, how we partnered those together. We will go ahead and initiate MS Contin 15 mg twice daily, patient is to continue to take oxycodone 10 mg every 3 hours as needed to address increasing levels of pain. 2. Constipation. This is multifactorial, patient is having increased loose stools, is going to start Regorafenib tomorrow. This does have a side effect of diarrhea. Instructed patient to hold MiraLAX currently, and take 2 senna at bedtime. Can hold of have worsening diarrhea, I suspect with increasing opioid load will improve. 3. Stage IV rectal cancer. Patient continues to pursue treatment, patient does understand he has limited life expectancy. In agreement for family conference this next week on . 4. Advanced care planning. Patient does have DPOA and healthcare directive. Patient still needs a POLST, continue work with patient and family for anticipatory guidance and support for oral chemotherapy and transition to hospice when appropriate 45 minutes With review of chart, oncology note, coordination of care with oncology BRINA, [id number] with patient, counseling regarding continuum of care, as well as pain and symptom management
== END 2020-10-16 10:59 | disposition home or self-care (01) ==
LOC: PC 10:58
PROVIDERS: ATTEND Nurse Practitioner Adult Health
DX: Z51.5 Encounter for palliative care (principal); G89.3 Neoplasm related pain (acute) (chronic); C20 Malignant neoplasm of rectum; C78.7 Secondary malignant neoplasm of liver and intrahepatic bile duct; C78.00 Secondary malignant neoplasm of unspecified lung; C77.2 Secondary and unspecified malignant neoplasm of intra-abdominal lymph nodes; C79.72 Secondary malignant neoplasm of left adrenal gland; K59.00 Constipation, unspecified; Z79.01 Long term (current) use of anticoagulants; Z79.899 Other long term (current) drug therapy
CPT/HCPCS: 99215

== ENCOUNTER 2020-10-19 13:15 | Outpatient (CLI) | payer BC ==
--- NOTE | 2020-10-19 15:29 | CONSULTATION NOTE ---
Palliative Care Follow Up - Referral Referring Provider: Dr. Zoltan Mariscal Time of Visit: 5977-4987 Referral setting: Home Referral Reason: Pain of neoplastic origin/Met Rectal CA/Goals of Care - Information Sources Records reviewed: Previous records reviewed History/Review of Systems obtained from: Patient, Family (sister and mother present) Exam limitations: No limitations - History of Present Illness Update Brief HPI Update: Is a sabas 60-year-old gentleman with stage IV rectal cancer to liver, lung, left adrenal and abdominal nodes. He is now starting regorafenib, has had 2 to 3 days without any nausea and tolerating it well. He has not needed any bowel meds, I suspect he is having some loose stool related to it but with increasing opioids has not needed to take any Imodium. Patient was started on MS 15 mg sustained release, at twice daily, supplemented by oxycodone two tabs every 3-4 hours. He has needed two tabs 3 times daily since initiating of sustained- release morphine. He is feeling much more comfortable, has been sleeping better, is better able to ambulate and functionally has improved with improved pain management. He has been able to keep his bowels soft, somewhat loose. His abdominal hernias worsening but is reducible, and is wearing belt without any significant pain. Goal today of today's visit is to titrate pain meds, but also to have a family conference including his mother who will be his primary caregiver at the time he declines, as well as his sister. He wanted to have them understand his current situation as well as the continuum of care particularly around end-of-life. Past Medical History: Stage IV rectal cancer and lung 06/2019, FOLFIRINOX x6 cycles with remission of lung liver, with liver resection 12/2019, concurrent radiation and Xeloda to primary rectal tumor 03/05. Patient had progression with FOLFOX/bevacizumab but now transitioning to regorafenib. Patient has gained some weight, does have ongoing malignant cachexia. Social History - Living Situation Living arrangement: At home Living Situation: Alone Support System: Patient has moved to a one level apartment, is still managing his own ADLs. He is supported by his mother who lives nearby and they see each other daily. His sister is visiting from [place] she is available ongoing, her family is here to visit as well. He has two dogs and he is very attached to. Medications/Allergies - Medications Home Medications: Ambulatory Orders Medication Instructions Recorded Confirmed Multivit-Min/FA/Lycopen/Lutein 1 tab PO DAILY 07/19/19 10/20/20 [Men 50 Plus Multivitamin Tab] Lidocaine/Prilocain 2.5% Cream 30 gm TOP DAILY PRN 07/26/19 10/20/20 [Emla 2.5% Cream] Prochlorperazine Maleate 10 mg PO Q6HR PRN 07/26/19 10/20/20 [Compazine] Cholecalciferol [Vitamin D3] 5,000 unit PO DAILY 08/02/19 10/20/20 amLODIPine [Norvasc] 5 mg PO DAILY 08/02/19 10/20/20 Iron Supplement 65 mg PO .QOD 09/14/19 10/20/20 Loperamide [Imodium] 2 mg PO Q4HR PRN MDD 8 tabs 09/14/19 10/20/20 polyethylene glycoL 3350 [Miralax] 17 mg PO DAILY PRN MDD BID 09/14/19 10/20/20 Potassium Chloride 10 meq PO DAILY 09/27/19 10/20/20 Diphenoxylate/Atropine [Lomotil] 1 - 2 tab PO QID PRN #40 tablet 03/07/20 10/20/20 ondansetron HCL [Ondansetron HCl] 8 mg PO TID PRN 04/25/20 10/20/20 Omeprazole Magnesium 20 mg PO DAILY 05/15/20 10/20/20 levOCARNitine tartrate 500 mg PO BID 05/29/20 10/20/20 [l-Carnitine] oxyCODONE [Roxicodone] 10 mg PO . 3 HOURS PRN 10/09/20 10/20/20 Regorafenib [Stivarga] 160 mg PO DAILY 10/12/20 10/20/20 Morphine ER [Morphine Sulfate ER] 15 mg PO TID 10/16/20 10/20/20 - Allergies Allergies/Adverse Reactions: Allergies Allergy/AdvReac Type Severity Reaction Status Date / Time No Known Drug Allergies Allergy Verified 10/09/20 09:28 Review of Systems - Constitutional Constitutional: reports: Fatigue, Weakness, Weight gain (160 gained a few pounds; eating ice cream) - Eyes Eyes: reports: Vision loss, Corrective lenses - Ears, Nose & Throat Ears, Nose & Throat: reports: Dry mouth. denies: Mouth lesions - Cardiovascular Cardiovascular: reports: Decr. exercise tolerance (still walking dogs 3x a day). denies: Edema - Gastrointestinal Gastrointestinal: reports: Nausea (slight but resolved), Reflux/heartburn, Early satiety, Good appetite, Other (taste changes). denies: Constipation, Rectal bleeding - Musculoskeletal Musculoskeletal: reports: Stiffness, Muscle weakness - Integumentary Integumentary: reports: Dryness, Nail changes, Hair changes - Neurological Neurological: reports: General weakness - Psychiatric Psychiatric: reports: Anxiety - Hematologic/Lymphatic Hematologic/Lymph: reports: Anemia - All Other Systems All Other Systems: reports: Reviewed and negative Physical Exam - Physical Exam General Appearance: positive: Alert, Cachetic Eyes Bilateral: positive: Normal inspection ENT: positive: No signs of dehydration Neck: positive: Trachea midline Respiratory: positive: No respiratory distress, Breath sounds nml Abdomen: positive: Soft, Tenderness, Distended (abdominal hernia more prounounced) Extremities: positive: No pedal edema Neurologic/Psychiatric: positive: Oriented x3 Palliative Care - POLST Patient has POLST: No Pain: Pain improved, Location (rectal area/), Comment (improved functional status and mood) Sleep: Variable sleep pattern Performance Status: Patient is having improved functional status with pain improved, discussed safety issues regarding driving and pain medication, patient at this point does not feel altered or sedated. He does have support if needs rides. - Palliative Care Discussion: Family conference with mother who is patient's main support, and will be most likely his caregiver, and his sister from [place]. Reviewed his current treatment regimen, concerns regarding goals of care, goals of treatment are to manage his disease with the hope for improved quality and quantity, but he is on limited options. Counseling provided regarding weighing benefits and burdens of treatments, as can hasten if patient continues to deteriorate both from side effects of treatment and disease process. Counseling provided regarding the continuum of care, total time spent X minutes with greater than 50% of this spent in counseling and coordination of care, review of pain and symptom management and anticipatory guidance. Transition to hospice, end-of-life care and what to expect. Neither patient nor family have any experience with end-of-life and what this might look like, gentle anticipatory guidance provided. Patient would like to be at home and family would like to support him in this. Patient who is usually quite anxious about these conversations, was able to participate, family asked appropriate questions and he did step out to allow them to ask more intimate details and address her concerns. Mother appropriately has anticipatory grieving over the loss of her son, but does not want his suffering prolonged. She is hoping for appropriate support and guidance to be able to meet his wishes. Impression and Recommendations - Palliative Care Impression: This is a sabas 60-year-old gentleman with progressive stage IV rectal cancer with increasing rectal mass and worsening pain. He has continued to improve on his opioids, his opioid use though does indicate need for titration. Today's visit was focused on family conference and advanced care planning. Palliative care to continue provide support for pain and symptom management, psychosocial support and anticipatory guidance Recommendations/Counseling Done: 1. Pain of neoplastic origin. Titrating MS Contin 15 mg twice daily up to 3 times daily, patient is instructed to continue with oxycodone 10 mg every 3 hours as needed to address increasing levels of pain. We will revisit this again on Monday 10/23. 2. Constipation. This is multifactorial, at this point in time patient has not needed any bowel meds suspected as a side effect of his regorafenib. Patient is instructed to hold all bowel meds currently, take 2 tabs if no BM in 24 hours, if worsening diarrhea from chemo drug or if it is watery, instructed to initiate Imodium 2 tabs after first stool and continue 1 tab after each additional loose stool. 3. Advanced care planning. Counseling provided to family regarding patient's goals of care, which at this point is to focus on managing disease as possible with treatment, weighing benefits and burdens in the context of his current quality of life. Counseling provided regarding the continuum of care from palliative transitioning to hospice, as well as anticipatory guidance around end-of-life care. Patient is expressing quite clearly, if he were to obstruct or needed some kind of surgery, he would be much more interested in just transitioning to end-of-life and focusing on comfort. He does not want to go through any further procedures or prolonging his suffering if this were to occur. 60 minutes with greater than 50% of this done in counseling regarding pain and symptom management, advanced care planning, anticipatory guidance provided regarding the continuum of care.
== END 2020-10-19 13:16 | disposition home or self-care (01) ==
LOC: PC 13:15
PROVIDERS: ATTEND Nurse Practitioner Adult Health
DX: Z51.5 Encounter for palliative care (principal); G89.3 Neoplasm related pain (acute) (chronic); C80.1 Malignant (primary) neoplasm, unspecified; C78.5 Secondary malignant neoplasm of large intestine and rectum; C78.7 Secondary malignant neoplasm of liver and intrahepatic bile duct; C78.00 Secondary malignant neoplasm of unspecified lung; C77.2 Secondary and unspecified malignant neoplasm of intra-abdominal lymph nodes; C79.72 Secondary malignant neoplasm of left adrenal gland; R64 Cachexia; K46.9 Unspecified abdominal hernia without obstruction or gangrene; Z79.899 Other long term (current) drug therapy; Z79.891 Long term (current) use of opiate analgesic
CPT/HCPCS: 99350

== ENCOUNTER 2020-10-23 13:56 | Outpatient (CLI) | payer BC ==
--- NOTE | 2020-10-23 17:29 | CONSULTATION NOTE ---
Palliative Care Follow Up - Referral Referring Provider: Dr. 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 He has started on his regorafenib, with worsening nausea, and diarrhea today. He has had rapidly progressing pain with a known mass 4 cm anteriorly, particularly irritated by the bowel movements and gas. He is up on the toilet concerned he is going to pass stool with mostly gas. Had increased his morphine last , to 15 mg 3 times daily, he is continue to need between 40 and 60 mg of oxycodone for breakthrough pain. He denies sedation, is continuing difficult with pain at night, so is not well rested. He does continue to try and push food and fluids, but appears quite cachectic. He does have worsening abdominal pressure with increased pressure on his abdominal hernias, still able to reduce but is uncomfortable overall. Past Medical History: Stage IV rectal cancer with liver and lung mets 06/2019, FOLFIRINOX x6 cardiac cycles with remission of lung liver mets, liver resection 12/2019, concurrent radiation and Xeloda to primary rectal tumor 02/2020. Had progression on FOLFOX and Bevacizumab and recently transition to oral regorafenib Social History - Living Situation Living arrangement: At home Living Situation: Alone Support System: Patient lives alone in a 1 level apartment in [facility]. His mother's been staying with him, concerned about his frailty and having adequate support. He does have 2 dogs he is very fond of, his sister from [place] is visiting, he has 2 brothers and 2 sisters, he is expecting visits from another brother as well. He finds this quite stressful and overwhelming as he is somewhat of an introvert and private Medications/Allergies - Medications Home Medications: Ambulatory Orders Medication Instructions Recorded Confirmed Multivit-Min/FA/Lycopen/Lutein 1 tab PO DAILY 07/19/19 10/23/20 [Men 50 Plus Multivitamin Tab] Lidocaine/Prilocain 2.5% Cream 30 gm TOP DAILY PRN 07/26/19 10/23/20 [Emla 2.5% Cream] Prochlorperazine Maleate 10 mg PO Q6HR PRN 07/26/19 10/23/20 [Compazine] Cholecalciferol [Vitamin D3] 5,000 unit PO DAILY 08/02/19 10/23/20 amLODIPine [Norvasc] 5 mg PO DAILY 08/02/19 10/23/20 Iron Supplement 65 mg PO .QOD 09/14/19 10/23/20 Loperamide [Imodium] 2 mg PO Q4HR PRN MDD 8 tabs 09/14/19 10/23/20 polyethylene glycoL 3350 [Miralax] 17 mg PO DAILY PRN MDD BID 09/14/19 10/23/20 Potassium Chloride 10 meq PO DAILY 09/27/19 10/23/20 Diphenoxylate/Atropine [Lomotil] 1 - 2 tab PO QID PRN #40 tablet 03/07/20 10/23/20 ondansetron HCL [Ondansetron HCl] 8 mg PO TID PRN 04/25/20 10/23/20 Omeprazole Magnesium 20 mg PO DAILY 05/15/20 10/23/20 levOCARNitine tartrate 500 mg PO BID 05/29/20 10/23/20 [l-Carnitine] oxyCODONE [Roxicodone] 10 mg PO . 3 HOURS PRN 10/09/20 10/23/20 Regorafenib [Stivarga] 160 mg PO DAILY 10/12/20 10/23/20 Morphine ER [Morphine Sulfate ER] 15 mg PO TID MDD titrating to 30 10/16/20 10/23/20 mg TID - Allergies Allergies/Adverse Reactions: Allergies Allergy/AdvReac Type Severity Reaction Status Date / Time No Known Drug Allergies Allergy Verified 10/09/20 09:28 Review of Systems - Constitutional Constitutional: reports: Fatigue, Weakness - Eyes Eyes: reports: Vision loss, Corrective lenses - Ears, Nose & Throat Ears, Nose & Throat: reports: Dry mouth. denies: Mouth lesions - Cardiovascular Cardiovascular: reports: Decr. exercise tolerance (still walking dogs 3x a day). denies: Edema - Respiratory Respiratory: denies: SOB at rest - Gastrointestinal Gastrointestinal: reports: Nausea (persistent today), Early satiety, Good appetite, Other (taste changes). denies: Constipation, Rectal bleeding - Genitourinary Genitourinary: reports: Other (reports concentrated urine) - Musculoskeletal Musculoskeletal: reports: Stiffness, Muscle weakness - Integumentary Integumentary: reports: Dryness, Nail changes, Hair changes - Neurological Neurological: reports: General weakness - Psychiatric Psychiatric: reports: Anxiety - Hematologic/Lymphatic Hematologic/Lymph: reports: Anemia - All Other Systems All Other Systems: reports: Reviewed and negative Physical Exam - Vital Signs Pulse Rate: 97 Respiratory Rate: 16 Blood Pressure: 139/93 - Physical Exam General Appearance: positive: Alert, Cachetic Eyes Bilateral: positive: Normal inspection, No scleral icterus ENT: positive: No signs of dehydration Neck: positive: Trachea midline Cardiovascular: positive: Tachycardia Respiratory: positive: No respiratory distress, Breath sounds nml Abdomen: positive: Soft, Tenderness, Distended (abdominal hernia more prounounced; ascites) Extremities: positive: No pedal edema Neurologic/Psychiatric: positive: Oriented x3, Mood/affect nml, Flat affect Palliative Care - POLST Patient has POLST: No Pain: Pain worsening, Location (rectum), Severity (2/10 up to 8/10 with gas/stool) Tiredness/Fatigue: Mild (1-3) Drowsiness/Sedation: Mild (1-3) Nausea: Mild (1-3) Anorexia: None, Mild (1-3) Dyspnea: None Depression: None Anxiety: Mild (1-3) Feelings of wellbeing/Perceived Quality of Life: Fair, Worsening Sleep: Variable sleep pattern (related to pain/stooling) Performance Status: Patient with declining functional status, is most limited by his pain and fatigue. Is able to manage his ADLs currently, he does have his mother in the house to assist if he runs into problems these last few days. He has mixed feelings regarding this. - Palliative Care Discussion: Follow-up with patient regarding family meeting, feels like it went well. Is wanting to figure out how to stay in the moment, hope for the best, but is recognizing the seriousness of his illness and his impending decline. His medications and schedule is getting more complicated, may need to enlist help of his family. Patient does have some healthcare directives drawn up, I do have his DPOA, he did meet with a whirley operator requested he bring them in so we can discuss and update what we are missing including filling out a POLST Results - Lab Results Lab results reviewed: Yes Impression and Recommendations - Palliative Care Impression: This is a sabas 60-year-old gentleman with stage IV rectal cancer, with worsening pain secondary to his rectal mass. Have been titrating up pain meds, continues to be only poorly to moderately controlled, will titrate further. Patient is having some diarrhea, attributes this to the side effect of his RegorafenibAs was having constipation prior to initiation. He is starting to have some nausea as well. Palliative care providing support for pain and symptom management, and titration of pain medications, Psychosocial support and transition to hospice when appropriate. Recommendations/Counseling Done: 1. Pain of neoplastic origin. This is multifactorial, we will go ahead and increase his MS 15 mg extended release, will increase to 30 mg tonight, encouraged to take 30 mg a.m., 50 mg at noon tomorrow and 30 mg at bedtime. Did order 30 mg tablets and will transition starting 10/25. Patient to hold if becomes sedated. Continue to use oxycodone 10 mg every 3 hours as needed, pain remains fairly uncomfortable. Patient also having increased trouble with gas, encouraged to trial again Gas-X [id number], 3-4 times a day. Also instructed to use baby wipes on his rectum, as he is frequently having stools. 2. Diarrhea. Patient describes loose stools not watery but frequent, exacerbated by gas. Has not needed any MiraLAX or senna for for 5 days, but stools have been quite loose. Instructed to initiate Imodium twice a day along with opioids, may need to add more Imodium or transition to Lomotil. Patient is to reach out if worsening, patient did have severe diarrhea with radiation and did not reach out. 3. Anxiety. This is multifactorial, his family is quite anxious appropriately as they are seeing his decline, had family meeting last week, to address long- term planning and introduce hospice when appropriate. He is expecting multiple family members for visits, he is quite introvert did and finds this somewhat distressful and sharing his journey around end-of-life. 4. Advanced care planning. Requested patient bring in his advance care planning documents, patient will need supplemented by POLST. Patient with multiple questions still following family conference, addressed patient's concerns, psychosocial support given, counseling to normalize his anticipatory grief and anxiety. Review of oncology notes, labs, [id number] for physical exam, counseling, and anticipatory guidance as well as review of pain and symptom management
== END 2020-10-23 13:57 | disposition home or self-care (01) ==
LOC: PC 13:56
PROVIDERS: ATTEND Nurse Practitioner Adult Health
DX: Z51.5 Encounter for palliative care (principal); G89.3 Neoplasm related pain (acute) (chronic); C20 Malignant neoplasm of rectum; C78.7 Secondary malignant neoplasm of liver and intrahepatic bile duct; C78.00 Secondary malignant neoplasm of unspecified lung; C77.2 Secondary and unspecified malignant neoplasm of intra-abdominal lymph nodes; C79.72 Secondary malignant neoplasm of left adrenal gland; R11.0 Nausea; T45.1X5A Adverse effect of antineoplastic and immunosuppressive drugs, initial encounter; R19.7 Diarrhea, unspecified; F41.9 Anxiety disorder, unspecified; Z79.899 Other long term (current) drug therapy
CPT/HCPCS: 99215

== ENCOUNTER 2020-11-13 09:04 | Outpatient (CLI) | payer BC ==
--- NOTE | 2020-11-13 15:13 | CONSULTATION NOTE ---
Palliative Care Follow Up - Referral Referring Provider: Dr. Zoltan Mariscal Time of Visit: 45 minutes Referral setting: [facility] [place] Referral Reason: Pain of neoplastic origin/Met Colon CA/ACP - Information Sources Records reviewed: Previous records reviewed History/Review of Systems obtained from: Patient Exam limitations: No limitations - History of Present Illness Update Brief HPI Update: This is a sabas 60-year-old gentleman with stage IV rectal cancer with mets to liver, lung, left adrenal, abdominal nodes. He has started on regorafenib, but has had difficulty tolerating it with nausea, severe diarrhea, and hand-foot syndrome. He has been off it another week, with resolution of symptoms. He did meet with oncology today, they are getting started at a 25% dose of 40 mg. Patient that was quite clear if it continues to impact his quality of life he is more than willing to quit. He denies any rectal bleeding. His pain which is attributed to his rectal tumor, is currently managed on 30 mg 3 times daily of extended release morphine with limited need of oxycodone 1-2 times a day. His mother is currently moved in with him, to provide further support, he has found this helpful. He does have less energy but his functional status remains good. He currently has family visiting, his brother from [place] and his sister from [place] and continues to be somewhat incredulous as he does not feel like he "has cancer" or is dying. Past Medical History: Stage IV rectal cancer with liver, and lung mets 06/2019, FOLFIRINOX x6 cycles with remission of lung and liver mets, liver resection 12/2019. Concurrent radiation and Xeloda to primary rectal tumor 02/2020. 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 He lives in a 1 level apartment in [facility], his mother's been staying with him as is concerned about his frailty and adequate support. He does have 2 dogs he is very fond of, he has family visiting. Medications/Allergies - Medications Home Medications: Ambulatory Orders Medication Instructions Recorded Confirmed Multivit-Min/FA/Lycopen/Lutein 1 tab PO DAILY 07/19/19 11/14/20 [Men 50 Plus Multivitamin Tab] Lidocaine/Prilocain 2.5% Cream 30 gm TOP DAILY PRN 07/26/19 11/14/20 [Emla 2.5% Cream] Prochlorperazine Maleate 10 mg PO Q6HR PRN 07/26/19 11/14/20 [Compazine] Cholecalciferol [Vitamin D3] 5,000 unit PO DAILY 08/02/19 11/14/20 Iron Supplement 65 mg PO .QOD 09/14/19 11/14/20 Loperamide [Imodium] 2 mg PO Q4HR PRN MDD 8 tabs 09/14/19 11/14/20 polyethylene glycoL 3350 [Miralax] 17 mg PO DAILY PRN MDD BID 09/14/19 11/14/20 Potassium Chloride 10 meq PO DAILY 09/27/19 11/14/20 Diphenoxylate/Atropine [Lomotil] 1 - 2 tab PO QID PRN #40 tablet 03/07/20 11/14/20 ondansetron HCL [Ondansetron HCl] 8 mg PO TID PRN 04/25/20 11/14/20 Omeprazole Magnesium 20 mg PO DAILY 05/15/20 11/14/20 levOCARNitine tartrate 500 mg PO BID 05/29/20 11/14/20 [l-Carnitine] oxyCODONE [Roxicodone] 10 mg PO . 3 HOURS PRN 10/09/20 11/14/20 Regorafenib [Stivarga] 40 mg PO DAILY 10/12/20 11/14/20 Morphine ER [Morphine Sulfate ER] 30 mg PO TID 10/16/20 11/14/20 Alprazolam [Xanax] 0.25 mg PO TID PRN 11/14/20 11/14/20 - Allergies Allergies/Adverse Reactions: Allergies Allergy/AdvReac Type Severity Reaction Status Date / Time No Known Drug Allergies Allergy Verified 10/09/20 09:28 Review of Systems - Constitutional Constitutional: reports: Fatigue, Weakness, Weight loss (72.1 kg) - Eyes Eyes: reports: Vision loss, Corrective lenses - Ears, Nose & Throat Ears, Nose & Throat: denies: Mouth lesions - Cardiovascular Cardiovascular: reports: Decr. exercise tolerance (still walking dogs 3x a day). denies: Edema - Gastrointestinal Gastrointestinal: reports: Early satiety, Other (taste changes) - Musculoskeletal Musculoskeletal: reports: Stiffness, Muscle weakness - Integumentary Integumentary: reports: Dryness (improved hand/foot-residual peeling on hand), Nail changes, Hair changes - Neurological Neurological: reports: General weakness - Psychiatric Psychiatric: reports: Anxiety (persistent but not overwhelming) - Hematologic/Lymphatic Hematologic/Lymph: reports: Anemia (8.6). denies: Recurrent infections - All Other Systems All Other Systems: reports: Reviewed and negative Physical Exam - Vital Signs Temperature: 35.8 C Pulse Rate: 80 Respiratory Rate: 16 Blood Pressure: 103/65 - Physical Exam General Appearance: positive: No acute distress, Alert, Anxious, Cachetic Eyes Bilateral: positive: Normal inspection, No scleral icterus ENT: positive: No signs of dehydration Neck: positive: Trachea midline Cardiovascular: positive: Regular rate & rhythm Respiratory: positive: No respiratory distress Abdomen: positive: Non-tender, Soft, Other (abd hernia; easily reduced) Skin: positive: Pallor, Dryness (on hands; no residual redness) Extremities: positive: No pedal edema Neurologic/Psychiatric: positive: Oriented x3, Mood/affect nml Palliative Care - POLST Patient has POLST: Yes POLST Status: DNR, Selective Treatment (completed at visit) Pain: Pain improved, Location (rectal), Severity (2/10), Pattern (worsens with sitting/pressure and bowel movements) Tiredness/Fatigue: Mild (1-3) (improved) Drowsiness/Sedation: None Nausea: None Anorexia: Mild (1-3) Dyspnea: None Depression: None Anxiety: Mild (1-3) Feelings of wellbeing/Perceived Quality of Life: Good, Acceptable, Improved Sleep: Sleep improved Constipation: No Performance Status: Patient with only mild decline in functional status, still managing his ADLs. Still walking his dogs but with decreased activity tolerance. - Palliative Care Discussion: Patient with persistent anxiety, though reports this is improved. Has used the alprazolam but disliked some of the sedation with that. He does have his brother visiting from [place] and his sister from [place], his mother is currently staying with him. Is having nice visits, continues to try and just stay in the moment. Did meet with oncology, is going to restart his treatment at 25%, he does recognize he is coming to the end of his treatment cycles. He is somewhat incredulous regarding this, as he does not often feel like "he has cancer" or is dying. 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 Introduced the POLST in the context of needing to access emergent help, at this point time he would still accept blood transfusions and treatment for infections, and possible hospitalization depending on expected outcome does not want to prolong his suffering. Completed it as a DN AR/DNI and selective treatments with the recognition may transition to comfort measures and focus on a at home in the future. He is still continue to hope for some more quantity, as his pain is controlled he feels quality is improved currently. Results - Lab Results Lab results reviewed: Yes Lab and Imaging Results: Hemoglobin down to 8.6, platelets 106,000, CEA up to 54.2 from 44 earlier in fri Impression and Recommendations - Palliative Care Impression: This is a sabas 60-year-old gentleman with stage IV rectal cancer with metastatic disease to liver, lung, adrenal, and lymph nodes. Currently his pain is well controlled, pain is secondary to his rectal mass. He is not having any further bleeding. He is still had difficulty tolerating the Regorafenib, oncologist has restarted him at 25% dosing of 40 mg. He has had significant diarrhea even with the 50% dosing, but is willing to give it another try. Palliative care continue to follow for pain and symptom management, titration of pain medications, psychosocial support and transition to hospice when appropriate Recommendations/Counseling Done: 1. Pain of neoplastic origin. Patient is currently on extended release morphine 30 mg 3 times daily, this is working fairly well for him. He only has occasional breakthrough pain. No changes to his current regimen. 2. Diarrhea. This is multifactorial, was exacerbated by the Regorafenib, he is to restart this at 25% dosing. Patient does have Lomotil and Imodium, has been using to decrease stool frequency, reports currently with some formed stool. 3. Metastatic colon cancer. Patient recognizing running out of treatment options, will trial 25% dosing, had expected to discontinue treatment with earlier appointment. Is willing to give it a try again, but has felt better off of it, will monitor and weigh decisions in the context of quality of life. 4. Anxiety. This is multifactorial, continues with some persistent but does have good family support at this point in time. Continues to grapple with questions regarding impending decline and what to expect in the future. 5. Advanced care planning. We did review his advance care planning documents, does need to be supplemented by the POLST. POLST completed with DN AR/DNI and selective treatments, patient's goals are for quality and quantity of life, but not at the cost of prolong suffering. Patient does want to have a at home, has been introduced to hospice. Is feeling still engaged in treatment, b ut is weighing this in the context of quality of life in the future. 45 minutes with Review of oncology notes, labs, meet [id number] with patient, counseling regarding advance care planning, pain and symptom management and anticipatory guidance
== END 2020-11-13 09:05 | disposition home or self-care (01) ==
LOC: PC 09:04
PROVIDERS: ATTEND Nurse Practitioner Adult Health
DX: Z51.5 Encounter for palliative care (principal); G89.3 Neoplasm related pain (acute) (chronic); R19.7 Diarrhea, unspecified; R53.83 Other fatigue; R53.1 Weakness; R68.81 Early satiety; R63.4 Abnormal weight loss; F41.9 Anxiety disorder, unspecified; C20 Malignant neoplasm of rectum; C78.7 Secondary malignant neoplasm of liver and intrahepatic bile duct; C78.02 Secondary malignant neoplasm of left lung; C77.2 Secondary and unspecified malignant neoplasm of intra-abdominal lymph nodes; C79.72 Secondary malignant neoplasm of left adrenal gland; Z79.891 Long term (current) use of opiate analgesic; Z79.899 Other long term (current) drug therapy; Z92.3 Personal history of irradiation; Z66 Do not resuscitate
CPT/HCPCS: 99215

== ENCOUNTER 2020-12-07 13:00 | Outpatient (CLI) | payer BC ==
--- NOTE | 2020-12-07 17:48 | CONSULTATION NOTE ---
Palliative Care Follow Up - Referral Referring Provider: Dr. Zoltan Mariscal Time of Visit: [id number] Referral setting: Home Referral Reason: Pain of neoplastic origin/Met Rectal CA/Depression - Information Sources Records reviewed: Previous records reviewed History/Review of Systems obtained from: Patient Exam limitations: No limitations - History of Present Illness Update Brief HPI Update: This is a sabas 60-year-old gentleman with stage IV rectal cancer with mets to liver, lung, left adrenal and abdominal nodes. He had started on regorafenib, And had significant side effects with nausea, severe diarrhea, and hand-foot syndrome. He had been restarted at 25% of the dose of 40 mg, was able to tolerate this for about 10 days, and again developed severe side effects including worsening peripheral neuropathy, numbness and tingling as well as recurrent skin issues. This is since been discontinued, patient continues actually to do fairly well, his pain is controlled with the morphine 30 mg extended release 3 times daily, only needing oxycodone intermittently, he did develop some right sciatica pain, and was initiated on pregabalin at 25 mg 3 times daily with some improvement though it does remained somewhat persistent. Patient continues with fluctuating diarrhea, trying to balance loperamide, Lomotil, and keeping stool soft as he does have a fairly large rectal tumor. He reports no bleeding. Though this is where his pain exacerbates if he has too frequent of stools. He continues with fluctuating gas, he is eating but with early satiety. He has gained some weight to 155, though it does appear that he has some worsening ascites demonstrated by his multiple abdominal hernias more pronounced but they are reducible. Patient is able to go out to walk his dogs, he is able to tolerate activity 20 to 35 minutes, but does have frequent rest periods he does appear quite thin and cachectic but reports overall he still feels his quality of life is acceptable. He does not perceive himself as "dying", as he is still able to do his activities, his shortness of breath is improved, and has been just taking things a day at a time though does have an emotional roller coaster appropriately so going on as well. Past Medical History: Stage IV rectal cancer with liver and lung mets 06/2019, FOLFIRINOX x6 cycles with remission of lung and liver mets, liver resection 12/2019. Concurrent radiation and Xeloda to primary rectal tumor 02/2020. With progression of cancer on FOLFOX and bevacizumab recent transition to regorafenib, Unable to tolerate toxicities currently on supportive care only. Social History - Living Situation Living arrangement: At home Living Situation: Alone Support System: Patient lives in [facility], has moved to a [facility], he lives with his 2 dogs which keep him busy. His mother lives nearby, has stayed with him on and off when he has had more toxicities and feeling poorly. He also has support from his sister who lives in [place].He has had family visiting. Medications/Allergies - Medications Home Medications: Ambulatory Orders Medication Instructions Recorded Confirmed Lidocaine/Prilocain 2.5% Cream 30 gm TOP DAILY PRN 07/26/19 12/07/20 [Emla 2.5% Cream] Prochlorperazine Maleate 10 mg PO Q6HR PRN 07/26/19 12/07/20 [Compazine] Loperamide [Imodium] 2 mg PO Q4HR PRN MDD 8 tabs 09/14/19 12/07/20 polyethylene glycoL 3350 [Miralax] 17 mg PO DAILY PRN MDD BID 09/14/19 12/07/20 Diphenoxylate/Atropine [Lomotil] 1 - 2 tab PO QID PRN #40 tablet 03/07/20 12/07/20 ondansetron HCL [Ondansetron HCl] 8 mg PO TID PRN 04/25/20 12/07/20 Omeprazole Magnesium 20 mg PO DAILY 05/15/20 12/07/20 levOCARNitine tartrate 500 mg PO BID 05/29/20 12/07/20 [l-Carnitine] oxyCODONE [Roxicodone] 10 mg PO . 3 HOURS PRN 10/09/20 12/07/20 Morphine ER [Morphine Sulfate ER] 30 mg PO TID 10/16/20 12/07/20 Alprazolam [Xanax] 0.25 mg PO TID PRN 11/14/20 12/07/20 Pregabalin [Lyrica] 25 mg PO TID MDD 50 mg tid 12/07/20 12/07/20 - Allergies Allergies/Adverse Reactions: Allergies Allergy/AdvReac Type Severity Reaction Status Date / Time No Known Drug Allergies Allergy Verified 10/09/20 09:28 Review of Systems - Constitutional Constitutional: reports: Fatigue, Weakness, Weight loss (155) - Eyes Eyes: reports: Vision loss, Corrective lenses - Ears, Nose & Throat Ears, Nose & Throat: denies: Mouth lesions - Cardiovascular Cardiovascular: reports: Decr. exercise tolerance (still walking dogs 3x a day). denies: Edema - Respiratory Respiratory: denies: SOB at rest - Gastrointestinal Gastrointestinal: reports: Bloating, Early satiety, Other (taste changes) - Genitourinary Genitourinary: reports: Other (reports concentrated urine) - Musculoskeletal Musculoskeletal: reports: Stiffness, Muscle weakness - Integumentary Integumentary: reports: Dryness (improved hand/foot-residual peeling on hand), Nail changes (worsening splitting), Hair changes - Neurological Neurological: reports: General weakness - Psychiatric Psychiatric: reports: Anxiety (persistent but not overwhelming) - Hematologic/Lymphatic Hematologic/Lymph: reports: Anemia (8.6). denies: Recurrent infections - All Other Systems All Other Systems: reports: Reviewed and negative Physical Exam - Vital Signs Temperature: 97.7 C Pulse Rate: 84 Respiratory Rate: 18 O2 Saturation: 100 Blood Pressure: 104/68 - Physical Exam General Appearance: positive: No acute distress, Alert, Anxious, Cachetic Eyes Bilateral: positive: Normal inspection, No scleral icterus ENT: positive: No signs of dehydration Neck: positive: Trachea midline Cardiovascular: positive: Regular rate & rhythm Respiratory: positive: No respiratory distress Abdomen: positive: Non-tender, Soft, Other (abd hernia; easily reduced but appears more distended suspect ascites) Skin: positive: Pallor, Dryness (on hands; no residual redness), Other (nails dry / splitting) Extremities: positive: No pedal edema Neurologic/Psychiatric: positive: Oriented x3, Mood/affect nml Palliative Care - POLST Patient has POLST: Yes POLST Status: DNR, Selective Treatment Pain: Pain unchanged, Location (rectal area; new right sciatica pain; controlled with current regimen) Tiredness/Fatigue: Moderate (4-6) Drowsiness/Sedation: Mild (1-3) Nausea: None Anorexia: Mild (1-3) Dyspnea: Mild (1-3) Depression: Mild (1-3) Anxiety: Moderate (4-6) Feelings of wellbeing/Perceived Quality of Life: Good, Acceptable, Improved (off chemotherapy) Sleep: Variable sleep pattern (depending on nocturnal stooling) Constipation: No Performance Status: Reports strength is improved, is walking his dogs 20 to 35 minutes at least a couple times a day, is managing his ADLs. Does have more energy after chemo. - Palliative Care Discussion: Has pending appointment with oncologist, is aware most likely has no further chemotherapy options. We did discuss in reality that he feels better off of it, that his quality of life has been good these last couple weeks, and the burden may out weigh any benefit. He reports he just does not feel like he is dying, and finds this actually quite frightening. We did discuss again as patient questions answered regarding end-of-life and dying. Did discuss also an option in the context of DWD, patient unclear if would want this, but is quite overwhelmed about thinking about being a burden at the end of life and any kind of suffering. He feels currently his quality of life is good, we discussed the processes self is just setting the requests and action. I will reach out to Dr. Mariscal to document first request so patient can have this as an option in the future if wants. Impression and Recommendations - Palliative Care Impression: This is a sabas 60-year-old gentleman with stage IV rectal cancer with metastatic disease to liver, lung, adrenal, and lymph nodes. Patient's pain is currently controlled, he did develop some right sciatica neuropathic pain, which is decreased with the use of pregabalin. He was unable to tolerate his regorafenib, and is doing much better off of his chemotherapy. He reports his quality of life has improved and is taking things a day at a time. Palliative care continue to follow for pain and symptom management, titrations of pain medications, psychosocial support, and transition to hospice when appropriate Recommendations/Counseling Done: 1. Pain of neoplastic origin. Patient is currently on extended release morphine 30 mg 3 times daily, with only occasional breakthrough pain medication needed for oxycodone. He does not like the "grogginess", instructed could take half of an oxycodone 10 mg, and repeat in an hour if not effective. Patient developed right sciatica pain, most likely related to tumor compression, started pregabalin 25 mg 3 times daily with some improvement, still has some sharp shooting pains down his right leg. Counseling provided regarding can titrate up to 50 mg 3 times daily over the next few days, balancing with sedation. Patient verbalized understanding. 2. Diarrhea. This is multifactorial, was exacerbated by the regorafenib. Patient is using alternating Lomotil and Imodium, with trying to decrease frequency of stool as this increases his pain. Some days he needs none, and some days 4-5. He feels like he is able to manage though does have some periods of incontinence which is quite distressing for him. 3. Metastatic colon cancer. Patient does recognize most likely no further treatment options, is feeling better currently off of it in the context of his quality of life. He does understand the seriousness of his illness, though c ontinues to be somewhat confounded as he does not feel like "he is dying". He does follow-up with oncology on Friday, will reach out with update. 4. Anxiety. This is multifactorial, continues with persistent and fluctuations, does have good family support. Continues to grapple with facing end-of-life, and his impending decline. As well as what to expect in the future. Answered patient's questions as presented, remains quite resistant at this point in time to consider transition to hospice given the connotations. 5. Advanced care planning. Patient has a POLST with DN AR/DNI and selective treatments, patient's goals are continuing to focus on quality of life. Patient does not want to prolong his suffering. He still remains somewhat distressed but coming to some understanding regarding his impending decline. Counseling provided regarding questions for DWD, and its place in the continuum. Will reach out to Dr. LIZBET ESCOTO to be sure and document first request. 60 minutes with greater than 50% of this done in counseling regarding pain and symptom management, anticipatory guidance, and advanced care planning. Coordination of care with oncology team.
== END 2020-12-07 13:01 | disposition home or self-care (01) ==
LOC: PC 13:00
PROVIDERS: ATTEND Nurse Practitioner Adult Health
DX: Z51.5 Encounter for palliative care (principal); G89.3 Neoplasm related pain (acute) (chronic); G62.0 Drug-induced polyneuropathy; L27.1 Localized skin eruption due to drugs and medicaments taken internally; T45.1X5S Adverse effect of antineoplastic and immunosuppressive drugs, sequela; F41.9 Anxiety disorder, unspecified; R19.7 Diarrhea, unspecified; R53.83 Other fatigue; R53.1 Weakness; R18.8 Other ascites; R63.4 Abnormal weight loss; M54.31 Sciatica, right side; C20 Malignant neoplasm of rectum; C78.00 Secondary malignant neoplasm of unspecified lung; C77.2 Secondary and unspecified malignant neoplasm of intra-abdominal lymph nodes; C78.7 Secondary malignant neoplasm of liver and intrahepatic bile duct; C79.72 Secondary malignant neoplasm of left adrenal gland; Z79.899 Other long term (current) drug therapy; Z79.891 Long term (current) use of opiate analgesic; Z92.21 Personal history of antineoplastic chemotherapy; Z92.3 Personal history of irradiation; Z92.25 Personal history of immunosuppression therapy; Z66 Do not resuscitate
CPT/HCPCS: 99350

== ENCOUNTER 2020-12-18 12:40 | Outpatient (CLI) | payer BC ==
--- NOTE | 2020-12-18 20:08 | CONSULTATION NOTE ---
Palliative Care Follow Up - Referral Referring Provider: Dr. Zoltan Mariscal Time of Visit: [id number] Referral setting: Home Referral Reason: Pain of neoplastic origin/Malignant Cachexia/Abdominal Hernia/Met Rectal CA - Information Sources Records reviewed: Previous records reviewed History/Review of Systems obtained from: Patient, Family (mother present) Exam limitations: No limitations - History of Present Illness Update Brief HPI Update: This is a sabas 60-year-old gentleman with stage IV rectal cancer to liver and lung, left adrenal, abdominal nodes. Patient had received aggressive treatment, with hope for possibility of curative surgery, unfortunately patient did present with progression of disease and was no longer a candidate in 09/2020. He originally presented 06/2019, received FOLFIRINOX for 6 cycles with remission of lung mets, he had liver mets resection in 12/2019. He also received follow-up concurrent radiation and Xeloda to the primary rectal tumor completed 02/2020 with severe toxicities of diarrhea and dehydration. He did present in April with progression with the left adrenal, lung, liver and abdominal nodes and received FOLFOX/bevacizumab until October. He was unable to continue because of ongoing pancytopenias. They did try oral regorafenib, but unable to tolerate toxicities and discontinued a few weeks ago. Patient has continued on supportive care, he does have peripheral neuropathy in hands and feet, does appear to be developing ascites, his abdominal hernia is worsening and causing increased discomfort. He has had alternating constipation and diarrhea, currently is struggling with small caliber stools, does have a known rectal mass of at least 4 cm with last scan in September, most likely larger at this point in time. Most of his pain is with sitting or pressure and with bowel movements or irritation. He denies any rectal bleeding at this time. Patient's pain is well controlled actually on time-released morphine of 30 mg 3 times daily, I did add pregabalin 25 mg 3 times daily for what he called "sciatica pain" in the last couple of weeks. I suspect it is more due to tumor pressure but did add to some improvement in his overall pain relief. He does have oxycodone for breakthrough pain, and uses that about 1-2 times a day, this is with exacerbation most likely related to sitting as well as bowel movements. Patient has been seen by oncology on 12/11 with recommendation to transition to hospice. Patient has struggled with his poor prognosis particularly last few months, as he has actually felt better off of chemotherapy, has been able to walk his dogs, he has had some persistent fatigue but overall has remained quite functional. Does not perceive he is a dying person. He has been quite realistic though, we have completed a POLST DNR/DNI as well as he has completed his end-of-life planning with his documents. Palliative care is meeting with patient and mother today, given patient's increase abdominal pressure, weight gain, and concern for worsening ascites to discuss transition to hospice care Social History - Living Situation Living arrangement: At home Living Situation: Alone Support System: Patient lives in [facility], has moved to [facility]. He lives there with his 2 dogs which keep him busy. His mother lives nearby, has stayed with him on and off when he has had more toxicities and feeling poorly. She is available to be a primary caregiver. He also has support from his sister lives in [place], as well as a sister in [place]. He has had family visiting.He very much likes his privacy, and is very fond of his dogs which he has had for 10 years. Medications/Allergies - Medications Home Medications: Ambulatory Orders Medication Instructions Recorded Confirmed Lidocaine/Prilocain 2.5% Cream 30 gm TOP DAILY PRN 07/26/19 12/19/20 [Emla 2.5% Cream] Prochlorperazine Maleate 10 mg PO Q6HR PRN 07/26/19 12/19/20 [Compazine] Loperamide [Imodium] 2 mg PO Q4HR PRN MDD 8 tabs 09/14/19 12/19/20 polyethylene glycoL 3350 [Miralax] 17 mg PO DAILY PRN MDD BID 09/14/19 12/19/20 Diphenoxylate/Atropine [Lomotil] 1 - 2 tab PO QID PRN #40 tablet 03/07/20 12/19/20 ondansetron HCL [Ondansetron HCl] 8 mg PO TID PRN 04/25/20 12/19/20 Omeprazole Magnesium 20 mg PO DAILY 05/15/20 12/19/20 levOCARNitine tartrate 500 mg PO BID 05/29/20 12/19/20 [l-Carnitine] oxyCODONE [Roxicodone] 10 mg PO . 3 HOURS PRN 10/09/20 12/19/20 Morphine ER [Morphine Sulfate ER] 30 mg PO TID 10/16/20 12/19/20 Alprazolam [Xanax] 0.25 mg PO TID PRN 11/14/20 12/19/20 Pregabalin [Lyrica] 25 mg PO TID MDD 50 mg tid 12/07/20 12/19/20 Spironolactone [Aldactone] 50 mg PO DAILY 12/19/20 12/19/20 - Allergies Allergies/Adverse Reactions: Allergies Allergy/AdvReac Type Severity Reaction Status Date / Time No Known Drug Allergies Allergy Verified 10/09/20 09:28 Review of Systems - Constitutional Constitutional: reports: Fatigue, Weakness, Weight gain (160 (5 pounds suspect r/t ascites) more temporal wasting; UE and LE wasting) - Eyes Eyes: reports: Vision loss, Corrective lenses - Ears, Nose & Throat Ears, Nose & Throat: denies: Mouth lesions - Cardiovascular Cardiovascular: reports: Edema (1+ up to mid calf), Decr. exercise tolerance (still walking dogs 3x a day) - Respiratory Respiratory: reports: SOB with exertion - Gastrointestinal Gastrointestinal: reports: Constipation (stopped immodium/lomotil-still with daily miralax having ribbon thin stool; but feels like passing at this time; no bleeding), Bloating, Early satiety, Other (taste changes). denies: Rectal bleeding, Nausea - Genitourinary Genitourinary: reports: Other (reports concentrated urine) - Musculoskeletal Musculoskeletal: reports: Stiffness, Muscle weakness - Integumentary Integumentary: reports: Dryness (improved hand/foot-residual peeling on hand), Nail changes (worsening splitting), Hair changes - Neurological Neurological: reports: General weakness - Psychiatric Psychiatric: reports: Anxiety (persistent but not overwhelming) - Hematologic/Lymphatic Hematologic/Lymph: reports: Anemia (8.3 12/11). denies: Recurrent infections - All Other Systems All Other Systems: reports: Reviewed and negative Physical Exam - Vital Signs Temperature: 97.7 C Pulse Rate: 83 Respiratory Rate: 18 O2 Saturation: 99 Blood Pressure: 104/64 (sitting; 98/72 standing) - Physical Exam General Appearance: positive: No acute distress, Alert, Anxious, Cachetic Eyes Bilateral: positive: Normal inspection, No scleral icterus ENT: positive: No signs of dehydration Neck: positive: Trachea midline Cardiovascular: positive: Regular rate & rhythm Respiratory: positive: No respiratory distress, Breath sounds nml Abdomen: positive: Non-tender, Soft, Other (abd hernia; more firm and larger in size; protruding; can reduce but does not stay with abdominal pressure) Skin: positive: Pallor, Dryness (on hands; no residual redness), Other (nails dry / splitting) Extremities: positive: Pedal edema (1+ up to mid calf) Neurologic/Psychiatric: positive: Oriented x3, Mood/affect nml, Flat affect Palliative Care - POLST Patient has POLST: Yes POLST Status: DNR, Selective Treatment Pain: Pain improved, Location (rectal area; right hip and leg) Performance Status: Patient remains ambulatory, is taking his dogs for walks at the dog park. It is difficult for him to sit for long periods of time, is often resting in a lounging position at home. He is feeling more confident for getting out a bit now he is not having as much diarrhea. He is able to manage his own ADLs. - Palliative Care Discussion: Patient continues to struggle with facing his mortality, and end-of-life. Does understand there are no further treatment options, but does not feel like he is "a dying man". Family meeting with he and his mother, to discuss the role of hospice. I expressed my concerns with ongoing changes in particularly development of ascites, worsening symptoms, that he have access to 24/7 call as well as ongoing support. Discussed that it is good to build relationship, particularly in the context as things get harder. Both mother and patient struggling with transition. But in agreement to hospice admit on . Has frame did in the context of the next leg of the journey, though are still hopeful patient has both quality and quantity of time left. Results - Lab Results Lab results reviewed: Yes Lab and Imaging Results: 12/11/2020 RBCs 4.9, hemoglobin 8.3, hematocrit 26.7, platelets 101, sodium 131, potassium 4.3, BUN 8, creatinine 0.6, GFR 137, total bilirubin 0.8, AST 29, ALT 15 alk phos 93, total protein 6.7, albumin 2.9 Impression and Recommendations - Palliative Care Impression: This is a sabas 60-year-old gentleman with stage IV rectal cancer with metastatic disease to liver, lung, adrenal, and lymph nodes. Patient's pain is currently controlled on current regimen. He has developed some ascites, lower extremity edema, and worsening protrusion of abdominal hernia. Family meeting today, with agreement to transition to hospice. Palliative care followed for pain and symptom management, psychosocial support, and anticipatory guidance. Recommendations/Counseling Done: 1. Pain of neoplastic origin. Patient is currently taking extended release morphine 30 mg 3 times daily, only needing occasional breakthrough pain medication of oxycodone. Patient developed right sciatica pain, most likely related to tumor compression, has had some improvement on pregabalin 25 mg 3 times daily. This can certainly be increased. Patient satisfied with current regimen, no changes made. 2. Constipation. Patient had been having diarrhea, specifically exacerbated by his regorafenib. Patient was instructed to increase his MiraLAX to twice daily, reports this has improved his output. He does have occasional incontinence which is quite distressing for him. 3. Metastatic colon cancer. Patient met with oncology, no further treatment options that would not hasten his demise. He does have better quality of life off of it, but continues to decline. Patient does understand the seriousness of his illness, though does not perceive himself as someone who is declining. Recommendation to who transition to hospice both through oncology and palliative care. 4. Anxiety. This is multifactorial, continues to be persistent and fluctuates, does have good family support particularly his mother. Continues to grapple with facing end-of-life and his impending decline as well as to what to expect in the future. He is willing to transition to hospice after family meeting today. Though is hopeful for both quality and quantity of time. 5. Advanced care planning. Patient does have a POLST with DN AR/DNI his mother is his DPOA. Patient does not want to prolong his suffering, remains somewhat distressed as he is coming to some understanding regarding his pending decline. At this point in time his agreement and transition to hospice for support for b oth he and his family.Referral made, staffed with [facility]/home health aide. 45 minutes with greater than 50% of this done in counseling regarding transition to hospice, management of symptoms, and anticipatory guidance. Coordination of care with hospice and hospice team
== END 2020-12-18 12:41 | disposition home or self-care (01) ==
LOC: PC 12:40
PROVIDERS: ATTEND Nurse Practitioner Adult Health
DX: Z51.5 Encounter for palliative care (principal); G89.3 Neoplasm related pain (acute) (chronic); C20 Malignant neoplasm of rectum; C78.7 Secondary malignant neoplasm of liver and intrahepatic bile duct; C78.00 Secondary malignant neoplasm of unspecified lung; R64 Cachexia; K46.9 Unspecified abdominal hernia without obstruction or gangrene; G62.9 Polyneuropathy, unspecified; H54.7 Unspecified visual loss; F41.9 Anxiety disorder, unspecified; D64.9 Anemia, unspecified; K59.00 Constipation, unspecified; Z66 Do not resuscitate; Z79.891 Long term (current) use of opiate analgesic; Z79.899 Other long term (current) drug therapy; Z92.21 Personal history of antineoplastic chemotherapy; Z92.3 Personal history of irradiation
CPT/HCPCS: 99349